=== PATIENT | female | born 1955 | race Caucasian/White ===

== ENCOUNTER 2020-12-11 13:34 | Outpatient (CLI) | payer BC, SELFPAY ==
--- NOTE | ~2020-12-11 | XR_ITS ---
XR chest 2V DATE: 12/11/2020 13:53 INDICATION: Shortness of breath TECHNIQUE: PA and lateral views COMPARISON: None FINDINGS: Normal heart size. Mild aortic tortuosity. No hilar or mediastinal enlargement. No pulmonary infiltrate or consolidation, pleural effusion or pulmonary vascular congestion or pneumo thorax. Diffuse osteopenia. Mild dextro scoliosis and degenerative spurring of the thoracic spine. Status post cholecystectomy IMPRESSION: No active cardiopulmonary disease Diffuse osteopenia. Reviewed, dictated and finalized at location A. 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
== END 2020-12-11 13:35 | disposition home or self-care (01) ==
PROVIDERS: PCP Family Medicine; Visit Provider Family Medicine
DX: R06.02 Shortness of breath (principal); M85.89 Other specified disorders of bone density and structure, multiple sites
CPT/HCPCS: 71046

== ENCOUNTER 2020-12-11 14:42 | Emergency (ER) | payer BC, SELFPAY ==
[2020-12-11 15:03] VITALS: BP 140/66; PULSE 72; RESP 16; TEMP 36.8; O2SAT 100
--- NOTE | 2020-12-11 15:22 | ED.SKABFB ---
HPI - Skin/Abscess/Foreign Bdy General Chief complaint: Skin/Abscess/Foreign Body Stated complaint: PNEUMONIA SHOT REACTION Source: patient and RN notes reviewed Limitations: no limitations History of Present Illness HPI narrative: The obese patient, on minimal meds, presents with skin eruption. Patient states at the beginning of the week she got a pneumonia vaccination in her left deltoid. She now complains of couple day history of oval, hand-size area of raised redness. Symptoms are mild, associated with pruritus. No fever, streaking, abscess/induration/fluctuance; her doctor did call in some antibiotics for ear pain ---which she has not taken [as her ear got better with some added eardrops] Related Data Home Medications Medication Instructions Recorded Confirmed cholecalciferol (vitamin D3) 3,000 unit PO DAILY 12/11/20 12/11/20 [Vitamin D3] irbesartan 150 mg PO DAILY 12/11/20 12/11/20 Allergies Allergy/AdvReac Type Severity Reaction Status Date / Time clarithromycin Allergy Unknown Unknown Verified 12/11/20 14:53 magnesium Allergy Unknown Unknown Verified 12/11/20 14:53 omeprazole Allergy Unknown Unknown Verified 12/11/20 14:53 Penicillins Allergy Unknown unknown Verified 12/11/20 14:53 Sulfa (Sulfonamide Allergy Unknown Unknown Verified 12/11/20 14:53 Antibiotics) 1.PCN, 2.SULFA Allergy Unknown unknown Uncoded 12/11/20 14:53 SHRIMP Allergy Unknown Unknown Uncoded 12/11/20 14:53 SULFACETAMIDE (Generic Allergy Unknown Uncoded 12/11/20 14:53 Allergy) Review of Systems Review of Systems: Narrative: General/Constitutional: No weight loss,fever Eyes: N0: Redness,discharge Ears/Nose/Throat: No: Epistaxis,ear discharge Respiratory: Denies: Hemoptysis Gastrointestinal: No Vomiting, Bleeding-rectal Skin: No Lumps, REPORTS eruption Neurologic: No Focal Weakness,Sz Hematologic: Denies: Petechiae/Purpura Psychiatric: No: Suicida ideationl All Other Systems: Reviewed and Negative [facility] Past Medical History Medical History (Updated 12/11/20 @ 15:25 by Venancio Hadley MD) Encounter for cholecystectomy Substernal chest pain Surgical History Surgical History History of carpal tunnel release (~2009) Family History Family History Father Family history of congenital heart disease Family history of cardiovascular disease, Onset Age: 89 Family history of congestive heart failure, Onset Age: 89 Mother Family history of cardiovascular disease Family history of malignant neoplasm of breast Family history of malignant neoplasm of breast in first degree relative Social History Social History Smoking status: Never smoker Alcohol intake: never Comments At time of signature, agree with nursing past medical, surgical, social and family history. There is no relevant family history pertinent to the presenting complaint Exam Narrative: Exam Narrative: General Appearance: Obese appearing, Conjunctiva clear Skin: Warm, Dry; 9 cm diameter, raised, pink-red, well-demarcated erysipeloid eruption centered on injection puncta at left deltoid Mouth/Throat: Normal appearing, Normal lips Neck: Supple Respiratory: Airway patent, No respiratory distress Musculoskeletal: Full ROM Neurological: A&O x3, CN II-X intact Psychiatric: Normal mood, Normal affect Course Vital Signs Vital signs: Vital Signs Temperature 98.3 F 12/11/20 15:03 Pulse Rate 72 12/11/20 15:03 Respiratory Rate 16 12/11/20 15:03 Blood Pressure 140/66 12/11/20 15:03 Pulse Oximetry 100 12/11/20 15:03 Temperature 98.3 F 12/11/20 15:03 Pulse Rate 72 12/11/20 15:03 Respiratory Rate 16 12/11/20 15:03 Blood Pressure 140/66 12/11/20 15:03 Pulse Oximetry 100 12/11/20 15:03 Discharge Plan Discharge Clinical Impression:
== END 2020-12-11 15:29 | disposition home or self-care (01) ==
PROVIDERS: Emergency Provider Emergency Medicine; PCP Family Medicine
DX: A46 Erysipelas (principal)
CPT/HCPCS: 99213; G0463

== ENCOUNTER 2021-01-04 15:06 | Outpatient (CLI) | payer BC, SELFPAY ==
--- NOTE | ~2021-01-04 | DEXA_ITS ---
Bone Density Report Name: Cady López Age: 65 Sex: Female Ethnicity: White Date of : 1955 Indication: postmenopausal; parental hip fracture; height loss; prior fracture; cancer; Referring Provider: Irving Adams Study: Bone densitometry was performed. Exam Date: January 04, 2021 Accession number: [id number] Bone Density: Region BMD T-score Z-score Classification AP Spine (L1-L4) 1.065 0.2 2.1 Normal Femoral Neck (Left) 0.682 -1.5 0.1 Osteopenia Total Hip (Left) 0.882 -0.5 0.9 Normal Total Hip Bilateral Avg 0.919 -0.2 1.2 Normal Femoral Neck (Right) 0.737 -1.0 0.6 Normal Total Hip (Right) 0.954 0.1 1.5 Normal World Health Organization criteria for BMD impression classify patients as: Normal (T-score at or above -1.0), Osteopenia (T-score between -1.0 and -2.5), or Osteoporosis (T-score at or below -2.5). 10-year Fracture Risk(1): Major Osteoporotic Fracture 23% Hip Fracture 2.3% Reported Risk Factors: [place] (), Neck BMD=0.682, BMI=41.5, previous fracture, parental fracture (1) FRAX(R) Version 3.08. Fracture probability calculated for an untreated patient. Fracture probability may be lower if the patient has received treatment. Previous Exams: Region Exam Age BMD T-score BMD Change BMD Change Date g/cm2 vs Baseline vs Previous AP Spine(L1-L4) 01/04/2021 65 1.065 0.2 0.036(3.5%)* 0.036(3.5%)* 10/05/2015 60 1.029 -0.2 Total Hip(Left) 01/04/2021 65 0.882 -0.5 -0.027(-3.0%)# -0.014(-1.6%) 10/05/2015 60 0.896 -0.4 -0.013(-1.5%)# -0.013(-1.5%)# 08/30/2010 55 0.909 -0.3 Total Hip(Right) 01/04/2021 65 0.954 0.1 0.055(6.2%)# -0.027(-2.7%) 10/05/2015 60 0.981 0.3 0.082(9.1%)# 0.082(9.1%)# 08/30/2010 55 0.899 -0.4 *Denotes significance at 95% confidence level, LSC for AP Spine = 0.022 g/cm2, LSC for Total Hip = 0.027 g/cm2 Clinical Information Provided by Patient: Has had a low trauma fracture Parent has had a hip fracture Has the following medical conditions: Cancer Patient maximum height was 64 Menopause Age: 53 Drinks caffeinated beverages Onset of menses at age 12 Number of children 3 Impression: The patient has low bone mass, based on the Left Femoral Neck T-score. The patient has an estimated ten-year risk of hip fracture of 2.3% and an estimated ten-year risk of major fracture of 23%, based on the WHO FRAX algorithm. The patient has risk factors, including:
--- NOTE | ~2021-01-04 | MM_ITS ---
EXAMINATION: MM screening [facility] BI w chema HISTORY: Screening mammogram TECHNIQUE: Craniocaudal and mediolateral oblique 3-D tomosynthesis images were obtained and synthetic 2-D images were generated. CAD analysis was submitted and interpreted. COMPARISON: 08/30/2017, 10/05/2015, 04/01/2013 bilateral digital screening mammogram examinations BREAST PARENCHYMAL COMPOSITION: There are scattered areas of fibroglandular density. FINDINGS: Scattered bilateral benign calcifications are noted. There is no evidence of suspicious mas s, calcification, or architectural distortion to suggest malignancy in either breast. There has been no suspicious interval change. IMPRESSION: 1. No mammographic evidence of malignancy. 2. Recommend routine screening mammography in one year. BI-RADS Category 2: Benign finding(s). Reviewed, dictated and finalized at location A. 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
== END 2021-01-04 15:07 | disposition home or self-care (01) ==
PROVIDERS: PCP Family Medicine; Visit Provider Family Medicine
DX: Z12.31 Encounter for screening mammogram for malignant neoplasm of breast (principal); Z78.0 Asymptomatic menopausal state; M85.852 Other specified disorders of bone density and structure, left thigh
CPT/HCPCS: 77063; 77067; 77080

== ENCOUNTER 2021-04-16 01:46 | Emergency (ER) | payer BC, SELFPAY ==
--- NOTE | ~2021-04-16 | XR_ITS ---
EXAMINATION: XR chest 2V DATE: 04/16/2021 02:29 INDICATION: Sternal chest pain TECHNIQUE: PA and lateral views of the chest are obtained. COMPARISON: 12/11/2020 FINDINGS: The lungs are free of acute opacities. There is no pleural effusion or pneumothorax. The ca rdiomediastinal silhouette is normal. There is moderate thoracic spondylosis. Surgical clips in the r ight upper quadrant are likely from prior cholecystectomy. IMPRESSION: 1. No acute cardiopulmonary abnormality. Reviewed, dictated and finalized at location A.
[2021-04-16 01:51] VITALS: BP 174/87; PULSE 61; RESP 17; O2SAT 99
[2021-04-16 01:57] VITALS: PULSE 62
--- NOTE | 2021-04-16 01:59 | ECG_ITS ---
Measurements Intervals [place] Rate: 58 P: 35 GA: 206 QRS: 1 QRSD: 105 T: 30 QT: 395 QTc: 391 Interpretive Statements SINUS BRADYCARDIA BORDERLINE AV CONDUCTION DELAY CONSIDER INFERIOR INFARCT, AGE INDETERMINATE BASELINE ARTIFACT- II, V3-V6 ABNORMAL ECG Electronically Signed On 04-16-2021 6:28:04 CDT by Emmanuel Hernandez D.O.
[2021-04-16 02:12] LABS: Basophils Absolute Auto 0.1 K/mm3 (0.0-0.1); Basophils Percent Auto 0.9 % (0.2-1.2); Eosinophils Absolute Auto 0.2 K/mm3 (0-0.3); Eosinophils Percent Auto 2.5 % (0-4.4); Hematocrit 44.2 % (37.0-47.0); Immature Granulocyte Absolute 0.03 K/mm3 (0.00-0.031); Immature Granulocyte Percent A 0.4 % (0-0.5); Lymphocytes Absolute Auto 2.82 K/mm3 (0.9-3.2); Lymphocytes Percent Auto 35.2 % (18.3-44.2); Mean Corpuscular HGB Conc 31.7 g/dl (32-36); Mean Corpuscular Hemoglobin 28.5 pg (26-34); Mean Corpuscular Volume 89.8 fl (80-100); Mean Platelet Volume 10.2 fl (7.4-10.4); Monocytes Absolute Auto 0.7 K/mm3 (0.1-0.6); Neutrophils Absolute Auto 4.2 K/mm3 (1.3-6.7); Platelet Count Result 288 k/mm3 (150-375); Red Blood Count 4.92 M/mm3 (4.2-5.4); Red Cell Distribution Width 13.4 % (11.5-14.5)
[2021-04-16 02:30] LABS: Prothrombin Time 13.5 Seconds (11.1-14.7)
[2021-04-16 02:31] LABS: Partial Thromboplastin Time 30.2 SECONDS (22.3-36.8)
[2021-04-16 02:34] LABS: Anion Gap 8 mmol/L (8-16); Blood Urea Nitrogen 20 mg/dL (7-17); Calcium 9.2 mg/dL (8.4-10.2); Carbon Dioxide 27 mmol/L (22-30); Chloride 106 mmol/L (98-107); Estimated CRCL calculation 71 ml/min; Estimated Glomerular Filt Rate > 60; Glucose 100 mg/dL (65-105); Potassium 4.1 mmol/L (3.4-5.0); Sodium 141 mmol/L (137-145)
[2021-04-16 02:46] LABS: Troponin I < 0.012 ng/mL (0.000-0.034)
--- NOTE | 2021-04-16 03:42 | ED.CHESTPAIN ---
HPI - Chest Pain General Chief Complaint: Chest Pain Stated Complaint: chest pain Time Seen by Provider: 04/16/21 01:54 History of Present Illness HPI narrative: Patient is a 65-year-old female who presents the ER with chest pain. Sudden onset while she was sleeping. Sharp and radiated to her right shoulder and right neck. It would worsen if she would lay down flat better if she is sitting upright. Associated with a left nasal nosebleed which is well controlled at this point. No previous history of coronary disease. Cannot report any aggravating factors but symptoms are resolved at this point. Related Data Home Medications Medication Instructions Recorded Confirmed cholecalciferol (vitamin D3) 3,000 unit PO DAILY 12/11/20 01/11/21 [Vitamin D3] Allergies Allergy/AdvReac Type Severity Reaction Status Date / Time clarithromycin Allergy Unknown Unknown Verified 01/11/21 16:10 magnesium Allergy Unknown Unknown Verified 01/11/21 16:10 Penicillins Allergy Unknown unknown Verified 01/11/21 16:10 Sulfa (Sulfonamide Allergy Unknown Unknown Verified 01/11/21 16:10 Antibiotics) Review of Systems Review of Systems: All systems reviewed & are unremarkable except as noted in HPI and below Constitutional: Constitutional: Denies chills, Denies fever(s) and Denies weakness ENT: Denies dysphagia, Reports epistaxis and Denies sore throat Cardiovascular: Cardiovascular: Reports chest pain, Denies rapid heart rate and Reports radiating jaw, neck or arm pain Respiratory: Respiratory: Denies cough, Denies dyspnea and Denies wheezing Gastrointestinal: Gastrointestinal: Denies abdominal pain, Denies nausea and Denies vomiting [facility] Past Medical History Medical History (Updated 04/16/21 @ 05:35 by Tyshawn Flores MD) Dyslipidemia Essential (primary) hypertension Substernal chest pain Surgical History Surgical History (Updated 04/16/21 @ 03:44 by Tyshawn Flores MD) History of carpal tunnel release (~2009) History of cholecystectomy Family History Family History (Reviewed 01/11/21 @ 16:10 by Opal Rainey [facility]) Father Family history of congenital heart disease Family history of cardiovascular disease, Onset Age: 89 Family history of congestive heart failure, Onset Age: 89 Mother Family history of cardiovascular disease Family history of malignant neoplasm of breast Family history of malignant neoplasm of breast in first degree relative Social History Social History (Reviewed 01/11/21 @ 16:10 by Opal Rainey [facility]) Alcohol intake: never Exam Narrative: Exam Narrative: GENERAL: Well-appearing, well-nourished, and in no acute distress. HEAD: Normocephalic, atraumatic.. ENT: Nares clear, no rhinorrhea or epistaxis, left naris with area of recent epistaxis over the septum. Mucous membranes moist. CHEST: Clear to auscultation. No respiratory distress. HEART: Regular rate and rhythm. Normal peripheral pulses. ABDOMEN: Soft, nontender, nondistended. EXTREMITIES: Normal range of motion. No edema. SKIN: Warm, dry, no rash. NEURO: Alert and oriented x3. PSYCH: Normal mood and affect. Course Course Emergency Course: Chest pain-free. Troponin negative x2. Discharge home. Patient may have had esophageal spasm or atypical reflux. Reevaluation(s) Reevaluation #1: Resting comfortably. No chest pain at this time. Discussed will perform second troponin. Date: 04/16/21 Time: 04:35 Vital Signs Vital signs: Vital Signs Pulse Rate 61 04/16/21 01:51 Respiratory Rate 17 04/16/21 01:51 Blood Pressure 174/87 H 04/16/21 01:51 Pulse Oximetry 99 04/16/21 01:51 Pulse Rate 62 04/16/21 01:57 Respiratory Rate 17 04/16/21 01:51 Blood Pressure 174/87 H 04/16/21 01:51 Pulse Oximetry 99 04/16/21 01:51 MDM - Chest Pain Lab Data Result diagrams: 04/16/21 02:05 04/16/21 02:05 Labs: Lab Results 04/16/21 04/16/21 04/16/21 Range/U
[2021-04-16 05:17] LABS: Troponin I < 0.012 ng/mL (0.000-0.034)
[2021-04-16 05:48] VITALS: BP 141/86; PULSE 61; RESP 18; TEMP 36.9; O2SAT 97
== END 2021-04-16 05:49 | disposition home or self-care (01) ==
PROVIDERS: Emergency Provider Emergency Medicine; PCP Family Medicine
DX: R07.9 Chest pain, unspecified (principal); R00.1 Bradycardia, unspecified; E78.5 Hyperlipidemia, unspecified; I10 Essential (primary) hypertension
CPT/HCPCS: 36415; 71046; 80048; 84484; 85025; 85610; 85730; 93005; 99284

== ENCOUNTER 2021-08-15 14:07 | Observation (INO) | payer MEDICARE, SELFPAY ==
[2021-08-15] VITALS (27 sets, daily range): BP systolic 129–157; BP diastolic 84–98; PULSE 59–83; RESP 13–24; TEMP 36.6–36.7; O2SAT 95–100; BMI 40.2
--- NOTE | ~2021-08-15 | XR_ITS ---
EXAMINATION: XR chest 2V DATE: 08/15/2021 15:23 INDICATION: Syncopal episode TECHNIQUE: PA and lateral views of the chest were obtained. COMPARISON: Chest radiograph dated 04/16/2021 FINDINGS: The lungs remain clear with no focal airspace opacities, pulmonary edema, pleural effusion or pneumot horax. The cardiomediastinal silhouette is normal. Moderate mid thoracic spondylosis. Cholecystectomy clips in the right upper quadrant. Mild lumbar dextrocurvature with mild to moderate spondylosis. IMPRESSION: 1. No acute cardiopulmonary disease. Reviewed, dictated and finalized at location A.
--- NOTE | ~2021-08-15 | CT_ITS ---
EXAMINATION: CT brain wo con DATE: 08/15/2021 14:17 INDICATION: Acute stroke. TECHNIQUE: Computed tomography (CT) of the head was performed without intravenous contrast. The mA wa s adjusted according to patient size. Iterative reconstruction technique was employed. The dose-lengt h product was 605.33 mGy-cm. COMPARISON: None FINDINGS: There is no intracranial hemorrhage, acute infarction, or abnormal intracranial mass lesion . The ventricles are normal in size. The orbits are normal. There is mild mucosal thickening in the p aranasal sinuses. The mastoid air cells are normal. IMPRESSION: 1. Normal brain. I called this result to Dr. Fuentes. Reviewed, dictated and finalized at location A.
--- NOTE | ~2021-08-15 | US_ITS ---
EXAMINATION: US carotid duplex BI DATE: 08/16/2021 10:46 INDICATION: Possible stroke. Syncope. TECHNIQUE: Grayscale, color Doppler, and pulsed Doppler images of the cervical carotid arteries were obtained. The degree of vessel stenosis is placed in one of the following categories: normal, <50%, 5 0-69%, >=70% but less than near-occlusion, near-occlusion, or total occlusion. Note that percent sten osis relative to normal distal artery lumen diameter is indirectly measured from velocity measurement s as described by Favio, et al. Radiology 2003; 229:340-346. Notes: Normal: Peak systolic velocity <125 centimeters/sec and no plaque <50%. Peak systolic velocity <125 ( EDV <40; ICA/CCA PSV ratio <2.0; used these factors only a tandem lesions or low cardiac output or co ntralateral disease) 50-69 %: PSV 125-230 (EDV 40-100; ratio 2-4) >= 70% but less than near occlusion: PSV greater than 230 (EDV > 100; ratio> 4.0) Near Occlusion: PSV that is variable; markedly narrowed lumen Occlusion: Absent flow on color/spectral Doppler and no lumen on thompson scale. COMPARISON: None. FINDINGS: RIGHT: The right common carotid artery (CCA) peak systolic velocity (PSV) is 71 cm/s. The right internal car otid artery (ICA) PSV is 203 cm/s. The right ICA end-diastolic velocity (EDV) is 67 cm/s. The right I CA/CCA PSV ratio is 2.8. The external carotid artery (ECA) PSV is 79 cm/s. There is antegrade flow in the right vertebral artery. LEFT: The left CCA PSV is 95 cm/s. The left ICA PSV is 124 cm/s. The left ICA EDV is 25 cm/s. The left ICA/ CCA PSV ratio is 1.3. The ECA PSV is 89 cm/s. There is antegrade flow in the left vertebral artery. IMPRESSION: 1. 50-69% stenosis in the right internal carotid artery by sonographic criteria. 2. Less than 50% stenosis in the left internal carotid artery by sonographic criteria. Reviewed, dictated and finalized at location B. IMPRESSION: 1. 50-69% stenosis in the right internal carotid artery by sonographic criteria . 2. Less than 50% stenosis in the left internal carotid artery by sonographic cr iteria.
--- NOTE | ~2021-08-15 | MR_ITS ---
EXAMINATION: MR brain/brain stem wo con DATE: 08/16/2021 14:31 INDICATION: Transient global amnesia. TECHNIQUE: Magnetic resonance imaging (MRI) of the brain and brainstem was performed without intraven ous contrast. Sequences included sagittal and axial T1-weighted FSE, axial diffusion-weighted FS EPI, axial T2*-weighted GRE, axial T2-weighted FLAIR Propeller, and axial T2-weighted Propeller. The aviva ent refused contrast. Apparent diffusion coefficient (ADC) maps were created. COMPARISON: Head CT 08/15/2021 FINDINGS: There is no intracranial hemorrhage, acute infarction, or abnormal intracranial mass lesion . The ventricles are normal in size. The paranasal sinuses are clear. The orbits are normal. The mast oid air cells are normal. IMPRESSION: 1. Normal brain. Reviewed, dictated and finalized at location A. IMPRESSION: 1. Normal brain.
[2021-08-15 14:41] LABS: Glucose Point of Care 100 mg/dl (65-105)
[2021-08-15 15:46] LABS: Basophils Absolute Auto 0.1 K/mm3 (0.0-0.1); Basophils Percent Auto 0.8 % (0.2-1.2); Eosinophils Absolute Auto 0.2 K/mm3 (0-0.3); Eosinophils Percent Auto 3.2 % (0-4.4); Hematocrit 44.6 % (37.0-47.0); Hemoglobin 14.4 g/dL (12.0-15.0); Immature Granulocyte Absolute 0.03 K/mm3 (0.00-0.031); Immature Granulocyte Percent A 0.4 % (0-0.5); Lymphocytes Absolute Auto 2.06 K/mm3 (0.9-3.2); Lymphocytes Percent Auto 27.6 % (18.3-44.2); Mean Corpuscular HGB Conc 32.3 g/dl (32-36); Mean Corpuscular Hemoglobin 29.2 pg (26-34); Mean Corpuscular Volume 90.5 fl (80-100); Mean Platelet Volume 10.9 fl (7.4-10.4); Monocytes Absolute Auto 0.5 K/mm3 (0.1-0.6); Monocytes Percent Auto 7.2 % (2.6-8.5); Neutrophils Absolute Auto 4.5 K/mm3 (1.3-6.7); Neutrophils Percent Auto 60.8 % (45.5-73.1); Platelet Count Result 276 k/mm3 (150-375); Red Blood Count 4.93 M/mm3 (4.2-5.4); Red Cell Distribution Width 12.9 % (11.5-14.5); White Blood Count 7.5 K/mm3 (4.5-10.0)
[2021-08-15 15:51] LABS: Add Urine Microscopic? NO; Appearance Urine Clear (Clear); Bilirubin Urine Negative (Negative); Blood Urine Negative (Negative); Color Urine Straw (Yellow); Glucose Urine UA Negative (Negative); Ketones Urine Negative (Negative); Leukocyte Esterase Ur Negative LEU/UL (Negative); Nitrate Urine Negative (Negative); Protein Urine Negative (Negative); Specific Grav Ur 1.009 (1.001-1.035); Urobilinogen Urine Negative mg/dL (<2.0)
[2021-08-15 16:00] LABS: Prothrombin Time 13.1 Seconds (11.1-14.7)
[2021-08-15 16:01] LABS: Partial Thromboplastin Time 29.2 SECONDS (22.3-36.8)
[2021-08-15 16:02] LABS: Alanine Aminotransferase 18 U/L (4-35); Albumin Level 4.5 g/dL (3.5-5.1); Alkaline Phosphatase 97 U/L (38-126); Anion Gap 3 mmol/L (8-16); Aspartate Amino Transferase 24 U/L (14-36); Bilirubin,Total 0.3 mg/dL (0.2-1.3); Blood Urea Nitrogen 18 mg/dL (7-17); Calcium 9.4 mg/dL (8.4-10.2); Carbon Dioxide 32 mmol/L (22-30); Chloride 105 mmol/L (98-107); Estimated CRCL calculation 76 ml/min; Estimated Glomerular Filt Rate > 60; Glucose 105 mg/dL (65-110); Sodium 140 mmol/L (137-145)
[2021-08-15 16:14] LABS: Troponin I < 0.012 ng/mL (0.000-0.034)
--- NOTE | 2021-08-15 16:38 | ED.GENADULT ---
HPI - General Adult General Chief complaint: Altered Mental Status Stated complaint: AMS Time Seen by Provider: 08/15/21 14:33 History of Present Illness HPI narrative: Patient is a 66-year-old female who presents ER with concerns for strokelike symptoms. Patient was at the [facility] and had finished doing planks and was working on some bird dogs when she lost her memory until paramedics showed up. Even at that time she is unsure whether there or what was going on. She continued to have difficulty responding to questions until her arrival at the ER. She is still amnestic to the events that occurred. She denies any numbness or tingling or focal weakness. Patient has been seen in the past for chest pain. She had an echocardiogram in 01/[address] changes and she was noted to have hypertensive response with a blood pressure going up into the 200s at that time. Recent consultation by cardiology revealed that they would like to perform a cardiac catheterization if patient is continue to have recurrent chest pain given these findings. Related Data Home Medications Medication Instructions Recorded Confirmed cholecalciferol (vitamin D3) 3,000 unit PO DAILY 12/11/20 08/15/21 [Vitamin D3] flaxseed oil 1,000 mg PO DAILY 08/15/21 08/15/21 Allergies Allergy/AdvReac Type Severity Reaction Status Date / Time clarithromycin Allergy Unknown Unknown Verified 08/15/21 18:27 magnesium Allergy Unknown Unknown Verified 08/15/21 18:27 Penicillins Allergy Unknown unknown Verified 08/15/21 18:27 Sulfa (Sulfonamide Allergy Unknown Unknown Verified 08/15/21 18:27 Antibiotics) Review of Systems Review of Systems: All systems reviewed & are unremarkable except as noted in HPI and below Constitutional: Constitutional: Denies chills, Denies fever(s) and Denies weakness ENT: Denies nasal congestion and Denies sore throat Cardiovascular: Cardiovascular: Denies chest pain, Denies rapid heart rate and Denies radiating jaw, neck or arm pain Respiratory: Respiratory: Denies cough and Denies dyspnea Gastrointestinal: Gastrointestinal: Denies abdominal pain, Denies nausea and Denies vomiting Musculoskeletal: Musculoskeletal: Denies back pain, Reports arthralgias (Bilateral knee pain related to quadriceps tendinitis.) and Denies muscle cramps Neurologic: Reports syncope (?), Denies focal weakness and Denies numbness Comments: Amnesia PMFSH Past Medical History Medical History Acute sinusitis Essential (primary) hypertension Mixed hyperlipidemia Obstructive sleep apnea Upper respiratory infection Surgical History Surgical History History of carpal tunnel release History of section History of cholecystectomy History of tubal ligation History of vocal cord polypectomy Family History Family History Father Family history of congenital heart disease Family history of cardiovascular disease, Onset Age: 89 Family history of congestive heart failure, Onset Age: 89 Mother Family history of cardiovascular disease Family history of malignant neoplasm of breast Family history of malignant neoplasm of breast in first degree relative Social History Social History Social History: Surrogate decision-maker: Guzman Meadowsrecht, . CODE STATUS: Full code. 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 Smoking status: Never smoker Second hand tobacco smoke exposure: Yes Alcohol intake: never Substance use: never Substance use type: does not use Additional living arrangements comments: Lives in [place] with her . They have 3 adult sons. Patient enjoys gardening. Additional occupation/education comments: Retired o
--- NOTE | 2021-08-15 17:00 | ECG_ITS ---
Measurements Intervals [place] Rate: 63 P: 0 ND: 204 QRS: 11 QRSD: 100 T: 24 QT: 389 QTc: 399 Interpretive Statements SINUS RHYTHM BORDERLINE AV CONDUCTION DELAY LEFT VENTRICULAR HYPERTROPHY BASELINE WANDER- I, II, III BORDERLINE ECG Electronically Signed On 08-15-2021 17:19:37 CDT by Emmanuel Hernandez D.O.
--- NOTE | 2021-08-15 18:30 | PM.IMHP ---
H&P: HPI History of Present Illness Date/Time: 08/15/21 18:30 Chief Complaint: Altered mental status. Narrative: This is a very pleasant 66-year-old female with hypertension, dyslipidemia, and untreated sleep apnea who presented to the emergency department earlier today via EMS from the [facility] for evaluation of altered mental status. The patient was at the gym earlier today doing planks on a mat when she suddenly became confused. According to her head athletic trainer, the patient was disoriented and kept repeating the same questions, for instance she did not know where she was or how she got there. The next thing I know there were paramedics all around to me, taking me to the hospital. Brain CT and labs done on arrival to the emergency department were relatively unrevealing and over the last several hours that she has been in the ER, she has started to remember the events that occurred today. She now remembers getting up in the morning, eating breakfast, working in her garden, going to the gym, and she remembers feeling disoriented almost as though I was dissociated from my body. She has no deficits at the time my evaluation and has no complaints. She denies headache, vertigo, focal weakness, paresthesias, facial droop, dysphagia, and dysarthria. No chest pain, pleuritic pain, or shortness of breath. No reports of syncope or head trauma. She has never had similar symptoms in the past. She has not been started on any new medication recently. No alcohol or substance abuse. Review of Systems Review of Systems: 12 systems were reviewed. No fever, chills, or sweats. No recent cold or flu symptoms. She sleeps well at night and denies orthopnea and PND. She has been told that she snores and in fact was diagnosed with mild sleep apnea however she has not been able to tolerate the CPAP. She denies hypersomnolence. No recent illnesses. No sick contacts. She denies rash. No nausea, vomiting, diarrhea, or dysuria. Except as documented, all other systems were reviewed and are negative. REPLACED BY [facility] Past Medical History Medical History (Updated 08/15/21 @ 20:03 by Sivan Ulloa PA-C) Essential (primary) hypertension Mixed hyperlipidemia Obstructive sleep apnea Surgical History Surgical History (Updated 08/15/21 @ 20:01 by Sivan Ulloa PA-C) History of carpal tunnel release History of section History of cholecystectomy History of tubal ligation History of vocal cord polypectomy Family History Family History Father Family history of congenital heart disease Family history of cardiovascular disease, Onset Age: 89 Family history of congestive heart failure, Onset Age: 89 Mother Family history of cardiovascular disease Family history of malignant neoplasm of breast Family history of malignant neoplasm of breast in first degree relative Social History Social History (Updated 08/15/21 @ 20:02 by Sivan Ulloa PA-C) Social History: Surrogate decision-maker: Guzman López, . CODE STATUS: Full code. Smoking status: Never smoker Alcohol intake: never Substance use: never Additional living arrangements comments: Lives in [place] with her . They have 3 adult sons. Patient enjoys gardening. 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 Meds Home Medications and Allergies Home Medications Medication Instructions Recorded Confirmed Type cholecalciferol (vitamin D3) 3,000 unit PO DAILY 12/11/20 06/08/21 History [Vitamin D3] irbesartan 150 mg tablet 150 mg PO DAILY #90 tablet 06/08/21 06/08/21 Rx ciprofloxacin 0.3 %-dexamethasone 4 drp RIGHT EAR Q12H #7.5 ml 07/08/21 07/08/21 Rx 0.1 % ear drops,suspension Allergies Allergy/AdvReac Type Severity Reaction Status Date / Time clarithromycin Allergy Unknown Unknown Verified 08/15/21 18:27 magnesium Allergy Unknown Unknown Katherine
--- NOTE | 2021-08-15 20:18 | PC.NURSE ---
This patient, Cady López, was admitted to 3 [facility] Surg Room 320-01. Patient/family oriented to hospital policies and general routines including ID bracelet, bed and alarms, visiting hours, pain management, procedures, bathroom and other care routines, personal items, smoking policy, room service/diet, and visiting hours. Information on how to activate the Rapid Response Team has been discussed. Patient/Family are encouraged to report perceived risks to care and to ask questions if they do not understand what they are told or what they should do.
[2021-08-15 20:25] LABS: Troponin I < 0.012 ng/mL (0.000-0.034)
[2021-08-15] MEDS: ASPIRIN 81 MG CHEWABLE TABLET 324 MG PO (22:57)
[2021-08-15 23:40] LABS: Troponin I < 0.012 ng/mL (0.000-0.034)
[2021-08-16] VITALS (11 sets, daily range): BP systolic 114–132; BP diastolic 59–77; PULSE 55–87; RESP 18–20; TEMP 36.4–37; O2SAT 96–100
[2021-08-16 07:07] LABS: Alanine Aminotransferase 17 U/L (4-35); Albumin Level 4.1 g/dL (3.5-5.1); Alkaline Phosphatase 78 U/L (38-126); Anion Gap 6 mmol/L (8-16); Aspartate Amino Transferase 22 U/L (14-36); Bilirubin,Total 0.6 mg/dL (0.2-1.3); Blood Urea Nitrogen 17 mg/dL (7-17); Calcium 9.1 mg/dL (8.4-10.2); Carbon Dioxide 27 mmol/L (22-30); Chloride 108 mmol/L (98-107); Cholesterol 211 mg/dL (0-200); Estimated CRCL calculation 76 ml/min; Estimated Glomerular Filt Rate > 60; Glucose 102 mg/dL (65-110); HDL Direct 56 mg/dL; Potassium 4.2 mmol/L (3.4-5.0); Sodium 141 mmol/L (137-145); Triglycerides 104 mg/dL (<150)
[2021-08-16 07:17] LABS: LDL Cholesterol Direct 112 mg/dL
[2021-08-16] MEDS: CHOLECALCIFEROL 1,000 UNITS TABLET 3000 UNITS PO (09:00)
[2021-08-16] MEDS: ASPIRIN 81 MG ENTERIC TABLET PO (09:01)
--- NOTE | 2021-08-16 10:06 | PM.CNCAR ---
Assessment and Plan Assessment and plan (1) TGA (transient global amnesia): Code(s): G45.4 - Transient global amnesia Status: Acute Assessment and Plan: Patient presents with history consistent with transient global amnesia. Rule out TIA. There was no syncope. Telemetry shows NSR, no arrhythmias. Echo and MRI are pending as is the Neurology consult. (Preliminary echo report from my bedside view shows normal LV function. Patient had extremely tiny PFO with only 1 bubble noted in left atrium during bubble study, so it is extremely unlikely the patient had a TIA based on any PFO. ) Add a bubble study to the echo. This does not appear to be a cardiac event. (2) Essential (primary) hypertension: Code(s): I10 - Essential (primary) hypertension Status: Acute Assessment and Plan: Elevated BP at the time of the incident, but now blood pressure is controlled. (3) History of chest pain: Code(s): Z87.898 - Personal history of other specified conditions Status: Acute Assessment and Plan: Patient had has 3 or 4 episodes of chest pain, the last 1 being in January. Stress echo was negative. Has been seen by Dr. Lopez in the office, and is supposed to follow-up. No further evaluation chest pain is indicated at this time. No need for cardiac catheterization. History of Present Illness History of Present Illness Consult date/time: 08/16/21 10:06 Requesting physician: Sivan Ulloa PA-C Reason For Visit: transient global amnesia/extertional syncope Narrative: Date of service 08/16/2021: Cady Rene this 66-year-old female whom we were asked to see at the request of IVAN Oden for advice and opinion regarding amnesia and possible syncope. She has been seen in the past by Dr. Lopez for chest pain and had a negative stress echo in January 2021. She has history of hypertension and untreated sleep apnea. Patient has been exercising regularly since January, and she was at the [facility] do her exercises with her sales trainer. EMS run report shows the sales trainer states that the patient all the sudden became confused and started repeating questions. She forgot where she was and how she got to the gym. She recalls that this occurred when she was doing planks. On their arrival, vitals were stable, she was slow to answer questions, confused and disoriented but still responded appropriately to questions about herself, date, time and location. Fasting blood sugar 98, blood pressure. 174/84, O2 sat 98%, heart rate 72. No slurred speech or decreased motor function but some numbness and tingling around her mouth. She is able stand and walk to the stretcher without assistance. However, on the right over, she still could not recall EMS arrival on the scene, doing her work out, speaking with her instructor, if she ate breakfast that day as cetera. There was no chest pain, shortness of breath, dizziness, syncope or palpitations. The patient has not had any chest pain since January. She does have history of migraines. There was no aura yesterday. Patient is asking if we are going to do a cardiac catheterization; apparently that had been discussed in the past if there were more cardiac events or chest pain. Review of Systems Constitutional: Constitutional: Reports no additional constitutional complaints and Denies lethargy Eyes: Eyes: Reports no additional eye complaints ENT: Reports Normal hearing present Cardiovascular: Cardiovascular: Denies chest pain, Reports pedal edema (Occasional mild edema), Denies lightheadedness and Denies palpitations Respiratory: Respiratory: Denies no additional respiratory complaints, Denies dyspnea, Denies dyspnea on exertion and Denies wheezing Gastrointestin
--- NOTE | 2021-08-16 11:44 | WPDNEURCNPN ---
Assessment and Plan Additional Plan transient global amnesia with the possibility of partial seizures obviously she going to undergo EEG MRI of the brain and carotid studies and further recommendation will be made accordingly Consult date: 08/16/21 Time Seen: 11:30 HPI: Cady López is a 66 year old female 66 years old lady has been admitted to the hospital through the emergency room for the complaints of change in the mental status with the ongoing diagnosis of 1. Hypertension 2. Sleep apnea 3. Dyslipidemia . She was brought to the ER via EMS from [facility] for the complaints of change in the mental status reportedly she was at the gym earlier during flanks on a mat when she suddenly became confused according to her head animal trainer she was disoriented and kept repeating the same questions and she did not know where she was and how she got there she herself mentions that next thing she knew that she was seeing paramedics all around her she was brought to the hospital in the emergency room her initial CT scan of the head was unremarkable but she had started to remember the events that occurred the day and by the time she was admitted to the hospital he was able to remember getting up in the morning eating breakfast working in her garden going to the gym and feeling somewhat disoriented she had no disorientation at the time of examination by the hospitalist she gave no history of headache vertigo focal weakness facial droop dysphagia or dysarthria she does not drink she does not take any medications. As mentioned before she has never smoker never alcohol drinker and medications included only antihypertensive medication also she was noted Michele afebrile Review of Systems Review of Systems: All systems reviewed & are unremarkable except as noted in HPI and below PMFSH Past Medical History Medical History Acute sinusitis Essential (primary) hypertension Mixed hyperlipidemia Obstructive sleep apnea Upper respiratory infection Surgical History Surgical History History of carpal tunnel release History of section History of cholecystectomy History of tubal ligation History of vocal cord polypectomy Family History Family History Father Family history of congenital heart disease Family history of cardiovascular disease, Onset Age: 89 Family history of congestive heart failure, Onset Age: 89 Mother Family history of cardiovascular disease Family history of malignant neoplasm of breast Family history of malignant neoplasm of breast in first degree relative Social History Social History Social History: Surrogate decision-maker: Guzman López, . CODE STATUS: Full code. 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 Smoking status: Never smoker Second hand tobacco smoke exposure: Yes Alcohol intake: never Substance use: never Substance use type: does not use Additional living arrangements comments: Lives in [place] with her . They have 3 adult sons. Patient enjoys gardening. 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 Spiritual care concerns: No Meds Home Medications and Allergies Home Medications Medication Instructions Recorded Confirmed Type cholecalciferol (vitamin D3) 3,000 unit PO DAILY 12/11/20 08/15/21 History [Vitamin D3] irbesartan 150 mg tablet 150 mg PO DAILY #90 tablet 06/08/21 08/16/21 Rx flaxseed oil 1,000 mg PO DAILY 08/15/21 08/15/21 History Allergies Allergy/AdvReac Type Severity Reaction Status Date / Time clarithromycin Allergy Unknown Unknown Verified 08/15/21 18:27 magnesium Allergy Unknown Unknown Verified 08/15/21 18:27 Penicillins Allergy Unknow
--- NOTE | 2021-08-16 15:17 | PC.NURSE ---
On 08/16/21, the student, [Verna Gaffney ], provided care and completed [facility] documentation on this patient. I have reviewed the student's documentation and agree with the findings.
--- NOTE | 2021-08-16 18:46 | PM.IMPN ---
Progress Note: A&P Assessment and Plan (1) Transient global amnesia: Code(s): G45.4 - Transient global amnesia Status: Acute (2) Essential (primary) hypertension: Code(s): I10 - Essential (primary) hypertension Status: Acute (3) Dyslipidemia: Code(s): E78.5 - Hyperlipidemia, unspecified Status: Acute (4) Mixed hyperlipidemia: Code(s): E78.2 - Mixed hyperlipidemia Status: Acute Additional Plan 08/15/21 Patient was in her usual state of health when she got up this morning and while exercising she became suddenly confused and disoriented. History is suggestive of transient global amnesia. She does have risk factors for TIA/CVA though she is being admitted overnight for closer monitoring. Neurologic checks every 4 hours. Echocardiogram, carotid Doppler ultrasounds, and brain MRI ordered for a.m. Blood per his were reviewed and they are reasonably well-controlled, bit high on arrival though they have improved. Her home medications will be reviewed and resumed as appropriate. 08/16/21 MRI is negative for CVA Carotid ultrasound negative for high-grade stenosis EEG is pending Anticipate discharge home after neurological clearance tomorrow Subjective Date/time seen: 08/16/21 18:46 Patient seen sitting at side of bed speaking on Telfa without complaint. We reviewed possible diagnosis and that we are pending EEG for discharge. Patient questions pathophysiology of global transient amnesia. She is advised that she does not get the information she is seeking from Neurology tomorrow that I will review it with her. Exam Narrative: GEN: NAD, AAOx3, cooperative HEENT: NCAT, MMM, EOMI Neck: no JVD Heart: S1S2 RRR Lungs: CTA B/l Abd: soft, NT, ND, bowel sounds normoactive Ext: moves all, no cyanosis, no clubbing, no edema Neuro: Normal cognition, moves all extremities equally, no focal sensory or motor deficits appreciated Psych: Mood and affect congruent Objective Data Vital Signs Vital Signs: Vital Signs - 24 hr 08/15/21 20:00 08/15/21 20:15 08/16/21 00:00 Temperature 98.1 F Pulse Rate 74 71 65 Respiratory Rate 18 Blood Pressure 139/84 Pulse Oximetry 96 08/16/21 04:00 08/16/21 06:00 08/16/21 08:00 Temperature 97.6 F Pulse Rate 55 L 60 59 L Respiratory Rate 18 Blood Pressure 114/73 Pulse Oximetry 100 08/16/21 10:00 08/16/21 12:00 08/16/21 14:00 Temperature 98.6 F 98.0 F Pulse Rate 68 58 L 64 Respiratory Rate 20 18 Blood Pressure 125/59 L 132/69 Pulse Oximetry 98 98 08/16/21 14:51 Temperature Pulse Rate Respiratory Rate Blood Pressure Pulse Oximetry 96 Intake/Output Intake/Output: Intake & Output 08/13/21 08/14/21 08/15/21 08/16/21 23:59 23:59 23:59 23:59 Intake Total 840 Balance 840 Meds/Results Medications: Active Medications Generic Name Dose Route Start Last Admin Trade Name Freq PRN Reason Stop Dose Admin Acetaminophen 650 mg 08/15/21 17:01 Acetaminophen 325 Mg Tablet PO Q4H PRN Mild Pain (1-3) or Fever Aspirin 81 mg 08/17/21 08:00 Aspirin 81 Mg Chewable Tablet PO DAILY@0800 [facility] Atorvastatin Calcium 20 mg 08/17/21 09:00 Atorvastatin 20 Mg Tablet PO DAILY [facility] Irbesartan 150 mg 08/16/21 09:00 08/16/21 10:14 Irbesartan 150 Mg Tablet PO Not Given DAILY [facility] Non-Formulary Medication 1,000 mg 08/16/21 09:00 Flaxseed Oil PO 09/15/21 08:59 DAILY [facility] Ondansetron HCl 4 mg 08/15/21 17:01 Ondansetron Inj 4 Mg/2 Ml Vial IV PUSH Q4H PRN Nausea Vitamin D 3,000 units 08/16/21 09:00 08/16/21 09:00 Cholecalciferol 1,000 Units Tablet PO 3,000 units DAILY [facility] Administration Radiology Results: ITS Impressions Head CT 08/15/21 14:18 IMPRESSION: 1. Normal brain. I called this result to Dr. Fuentes. Chest X-Ray 08/15/21 15:25 IMPRESSION: 1. No acute cardiopulmonary disease. Carotid Doppler Study
--- NOTE | 2021-08-16 20:05 | ECHO_ITS ---
Patient Info Name: Cady López Age: 66 years : 1955 Gender: Female Ht: 63 in Wt: 227 lbs BSA: 2.19 m2 HR: 66 bpm BP: 114 / 73 mmHg Exam Date: 08/16/2021 10:17 AM Exam Location: [facility] Pulmonary Patient Status: Inpatient Admit Date: 08/15/2021 Staff Ordering Physician: Sivan Ulloa PA-C Medical Billing Coordinator: Jak Gaffney RDCS, RT Attending Provider: Caridad Gupta MD Referring Physician: Laila CANNON; Exam Type: CA echo doppler w bubble study Study Info Indications G45.8 - Other transient cerebral ischemic attacks and related syndromes I10 - Essential (primary) hypertension Complete two-dimensional, color flow and Doppler transthoracic echocardiogram is performed with agitated saline. Strain analysis performed. Summary 1. Normal LV size, mild LVH, normal LV systolic function, ejection fraction 60-65%; grade 1 diastolic dysfunction. Mild left atrial enlargement. Normal interatrial septum, no evidence of shunt on injection of agitated normal saline. Normal mitral valve structure, no significant MR. Aortic valve sclerosis, mild aortic stenosis, v max 1.85 m/sec, mean gradient 6 mmHg; calculated SUE 1.9 cm2. Trace TR, mild pulmonary hypertension, RVSP 41 mmHg. Sinus rhythm. Left Ventricle Left ventricular chamber dimension is normal. Left ventricular systolic function is normal, estimated at 60-65%. There is mildly increased left ventricular wall thickness. The left ventricular diastolic function is grade I diastolic dysfunction. Left Atria Left atrial chamber dimension is mildly enlarged. Right Atria Right atrial chamber dimension is normal. Atrial Septum Intact interatrial septum visualized by agitated saline imaging. Aortic Valve There is mild aortic valve sclerosis. There is mild aortic valve stenosis with a peak velocity of 185 cm/s, mean gradient of 6 mmHg, and aortic valve area of 1.9 cm2. Pulmonic Valve The pulmonic valve is not well visualized. Mitral Valve The mitral valve has normal leaflets. There is no mitral valve regurgitation. Tricuspid Valve The tricuspid valve leaflets are normal. There is trace tricuspid valve regurgitation. Mild pulmonary hypertension, estimated pulmonary arterial systolic pressure is 41 mmHg. Pericardium/Pleural The pericardium appears normal. Inferior Vena Cava Dilated inferior vena cava with >50% collapse upon inspiration consistent with elevated right atrial pressure, 10 mmHg. Aorta The aortic root size at the sinus of Valsalva is normal. Left Ventricular Outflow Tract Name Value Normal LVOT 2D LVOT Diameter 1.9 cm LVOT Doppler LVOT Peak Gradient 4 mmHg LVOT Mean Gradient 2 mmHg LVOT VTI 21 cm LVOT VTI/AV VTI Ratio 0.7 LVOT Stroke Volume 59 ml LVOT CO 4.0 l/min LVOT CI 1.8 l/min/m2 Mitral Valve Name Value No
[2021-08-17] VITALS: PULSE 65
[2021-08-17 04:00] VITALS: PULSE 65
[2021-08-17 06:00] VITALS: BP 112/71; PULSE 61; RESP 18; TEMP 35.7; O2SAT 99
[2021-08-17 08:00] VITALS: PULSE 66
[2021-08-17] MEDS: CHOLECALCIFEROL 1,000 UNITS TABLET 3000 UNITS PO (08:56)
[2021-08-17] MEDS: ASPIRIN 81 MG CHEWABLE TABLET PO (08:56)
[2021-08-17] MEDS: IRBESARTAN 150 MG TABLET PO (08:56)
[2021-08-17] MEDS: ATORVASTATIN 20 MG TABLET PO (08:56)
--- NOTE | 2021-08-17 09:20 | WPDNEUROLOGY ---
Neurology EEG Report General Information Date of Study: 08/16/21 TEST eeg DIAGNOSIS Transient global amnesia CONDITION OF RECORDING drowsy and sleep EEG NUMBER [id number] CLINICAL HISTORY patient was at the gym yesterday when she became disoriented and confused. Today feels much better but still having problems with memory and slower word selection EEG DESCRIPTION basic resting occipital frequency consists of large amount of well-organized low to medium voltage 9 to 11 hertz per 2nd alpha admixed with low-voltage 15 to 18 hertz per 2nd beta. During drowsiness low-voltage beta activity seen diffusely admixed with waxing and waning posterior alpha rhythm. Bilateral symmetrical sleep activity seen during sleep hyperventilation not done. Photic stimulation not done. Non paroxysmal. Nonfocal. Nonlateralizing. IMPRESSION Normal recall
--- NOTE | 2021-08-17 11:45 | WPDNEUROPN ---
Progress Note: A&P Additional Plan considering the evaluation up until now she will be of benefit from the continuation of the aspirin and follow-up for the carotid stenosis with CTA either during this hospitalization or subsequently and with the as empty of diagnosis of TIA because she still complains of symptoms could not be suggestive of transient global amnesia Subjective Date/time seen: 08/17/21 11:45 66 years old initially seen for the possibility of transient global amnesia versus the possibility of partial complex seizures documented to have normal MRI of the brain and 50 to 69% stenosis in the right internal carotid artery by sonographic criteria and less than 50% of the left ICA, routine lab studies are normal, EEG was also normal and echocardiogram documented no shunt across the atrium with ejection fraction of 60 to 65% and mild aortic valve stenosis Review of Systems Review of Systems: All systems reviewed & are unremarkable except as noted in HPI and below Exam Narrative: exam reveals her to be awake alert cooperative in no obvious acute distress with normal and full speech without evidence of dysphagia or dysarthria or dysphonia pupils round regular feels the vision full extraocular movement full face symmetrical tongue midline motor examination revealed her to have normal strength and tone with symmetrical reflexes downgoing plantar responses and also no evidence of cerebellar deficit Objective Data Vital Signs Vital Signs: Vital Signs - 24 hr 08/16/21 12:00 08/16/21 14:00 08/16/21 14:51 Temperature 36.7 C Pulse Rate 58 L 64 Respiratory Rate 18 Blood Pressure 132/69 Pulse Oximetry 98 96 08/16/21 16:00 08/16/21 20:00 08/16/21 22:00 Temperature 36.7 C Pulse Rate 87 69 65 Respiratory Rate 18 Blood Pressure 131/77 Pulse Oximetry 97 08/17/21 00:00 08/17/21 04:00 08/17/21 06:00 Temperature 35.7 C L Pulse Rate 65 65 61 Respiratory Rate 18 Blood Pressure 112/71 Pulse Oximetry 99 Intake/Output Intake/Output: Intake & Output 08/14/21 08/15/21 08/16/21 08/17/21 23:59 23:59 23:59 23:59 Intake Total 1510 540 Balance 1510 540 Meds/Results Medications: Active Medications Generic Name Dose Route Start Last Admin Trade Name Freq PRN Reason Stop Dose Admin Acetaminophen 650 mg 08/15/21 17:01 Acetaminophen 325 Mg Tablet PO Q4H PRN Mild Pain (1-3) or Fever Aspirin 81 mg 08/17/21 08:00 08/17/21 08:56 Aspirin 81 Mg Chewable Tablet PO 81 mg DAILY@0800 [facility] Administration Atorvastatin Calcium 20 mg 08/17/21 09:00 08/17/21 08:56 Atorvastatin 20 Mg Tablet PO 20 mg DAILY [facility] Administration Irbesartan 150 mg 08/16/21 09:00 08/17/21 08:56 Irbesartan 150 Mg Tablet PO 150 mg DAILY [facility] Administration Non-Formulary Medication 1,000 mg 08/16/21 09:00 Flaxseed Oil PO 09/15/21 08:59 DAILY [facility] Ondansetron HCl 4 mg 08/15/21 17:01 Ondansetron Inj 4 Mg/2 Ml Vial IV PUSH Q4H PRN Nausea Vitamin D 3,000 units 08/16/21 09:00 08/17/21 08:56 Cholecalciferol 1,000 Units Tablet PO 3,000 units DAILY [facility] Administration Radiology Results: ITS Impressions Head CT 08/15/21 14:18 IMPRESSION: 1. Normal brain. I called this result to Dr. Fuentes. Chest X-Ray 08/15/21 15:25 IMPRESSION: 1. No acute cardiopulmonary disease. Carotid Doppler Study 08/16/21 10:49 IMPRESSION: 1. 50-69% stenosis in the right internal carotid artery by sonographic criteria. 2. Less than 50% stenosis in the left internal carotid artery by sonographic criteria. Brain MRI 08/16/21 14:40 IMPRESSION: 1. Normal brain. Quality VTE Prophylaxis VTE prophylaxis: mechanical ordered Amg Follow-up Billing Inpatient Follow-up [id number] Mod
--- NOTE | 2021-08-17 12:17 | PM.DS ---
DS: Admitting Diagnosis Discharge Date 08/17/21 Admitting Diagnosis (1) Transient global amnesia: Code(s): G45.4 - Transient global amnesia Status: Acute (2) Essential (primary) hypertension: Code(s): I10 - Essential (primary) hypertension Status: Acute (3) Mixed hyperlipidemia: Code(s): E78.2 - Mixed hyperlipidemia Status: Acute DS: Discharge Diagnosis Discharge Diagnosis (1) Transient global amnesia: Code(s): G45.4 - Transient global amnesia Status: Acute (2) Mixed hyperlipidemia: Code(s): E78.2 - Mixed hyperlipidemia Status: Acute (3) Essential (primary) hypertension: Code(s): I10 - Essential (primary) hypertension Status: Acute (4) Morbid obesity with BMI of 40.0-44.9, adult: Code(s): E66.01 - Morbid (severe) obesity due to excess calories; Z68.41 - Body mass index [BMI] 40.0-44.9, adult Status: Acute DS: Summary Hospital Course Reason for hospitalization: Altered mental status Hospital Course: 66-year-old female was brought into the hospital with acute onset of altered mental status. Differential diagnosis includes TIA, CVA, transient global amnesia. Neurology was consulted, and patient underwent CT brain, MRI, EEG, carotid ultrasound imaging. No CVA was identified on MRI an EEG did not show any seizure activity. Patient was discharged home in stable condition with diagnosis of global transient amnesia in stable condition with indications of follow-up with her primary care physician. Patient is prescribed both aspirin and statin therapy at discharge as per Neurology request, however, patient is concerned about taking this and the need for these medications as she was recently told by her PCP it was not indicated. She is advised that she is now being prescribed this for this new diagnosis and that she is encouraged to take it, but we respect her right discuss it 1st with her primary care physician. Status at Discharge Functional status at discharge: independent ambulation Overall status at discharge: patient is back to baseline Time Spent with Patient Time attestation: Total time spent providing and/or coordinating discharge services: Time spent: Greater than 30 minutes Exam Narrative: GEN: NAD, AAOx3, cooperative HEENT: NCAT, MMM, EOMI Neck: no JVD Ext: moves all, no cyanosis, no clubbing, no edema Neuro: Normal cognition, moves all extremities equally, no focal sensory or motor deficits appreciated Psych: Mood and affect congruent Discharge Plan Discharge Attending physician on discharge: Gisela Lawson Consulting providers: Thong Lombardo Discharging Clinician: Gisela Lawson Anticipated Discharge Date/Time: 08/17/21 12:11 Patient Disposition: Home, Self-Care Activity: as tolerated Diet: heart healthy Stand Alone Forms: General Discharge Information, Work/School Release IP Follow-up/Referrals: Irving Adams MD [Primary Care Provider] - Thong Lombardo MD [Physician] - Discharge Medications: New aspirin [Children's Aspirin] 81 mg Tablet,Chewable 81 mg PO DAILY@0800 30 Days Qty: 30 RF: 0 atorvastatin 20 mg Tablet 20 mg PO DAILY 30 Days Qty: 30 RF: 0 Continued cholecalciferol (vitamin D3) [Vitamin D3] 50 mcg (2,000 unit) Tablet 3,000 unit PO DAILY RF: 0 irbesartan 150 mg tablet 150 mg PO DAILY Qty: 90 RF: 3 flaxseed oil 1,000 mg Capsule 1,000 mg PO DAILY RF: 0 Date of admission: 08/15/21 17:01 Primary Care Provider: Irving Adams Admitting Provider: Caridad Gupta Attending physician on admission: Caridad Gupta Condition: Stable Quality VTE Prophylaxis VTE prophylaxis: mechanical ordered
== END 2021-08-17 13:55 | disposition home or self-care (01) ==
LOC: ANHED 17:04 → ANH3MEDSUR 08-16 16:03
PROVIDERS: Physician Assistant; Admitting Provider Internal Medicine; Emergency Provider Emergency Medicine; PCP Family Medicine; Visit Provider Hospitalist
DX: I65.21 Occlusion and stenosis of right carotid artery (principal); I10 Essential (primary) hypertension; E78.5 Hyperlipidemia, unspecified; G47.33 Obstructive sleep apnea (adult) (pediatric); E66.01 Morbid (severe) obesity due to excess calories; R41.82 Altered mental status, unspecified; Z68.41 Body mass index [BMI] 40.0-44.9, adult; Z79.899 Other long term (current) drug therapy
CPT/HCPCS: 36415; 70450; 70551; 71046; 80053; 80061; 81003; 82607; 82948; 83735; 84443; 84484; 85025; 85610; 85730; 93005; 93306; 93880; 95816; 96375; 99285; A9270; G0378

== ENCOUNTER 2022-02-08 00:06 | Day surgery (SDC) | payer MEDICARE, SELFPAY ==
[2021-12-07 13:33] VITALS: BMI 37.0
[2022-01-26 15:05] VITALS: BMI 38.1
--- NOTE | 2022-02-07 09:52 | WPDANESEPPF ---
Anes - Initial Pre Proc Eval Procedure: Operation Date: 02/08/22 08:00 Proposed Procedures p Screening Colonoscopy - Ziyad Mullins MD Date/Time: 02/07/22 09:52 Surgeon: Ziyad Mullins MD Pre Op Diagnosis: neoplasm screening Patient Data Age: 66 Gender: F Height: 1.63 m Weight: 100.8 kg Allergies Allergy/AdvReac Type Severity Reaction Status Date / Time Penicillins Allergy Unknown unknown Verified 02/08/22 06:47 Sulfa (Sulfonamide Allergy Unknown Unknown Verified 02/08/22 06:47 Antibiotics) Home Medications Medication Instructions Recorded Confirmed Type cholecalciferol (vitamin D3) 3,000 unit PO DAILY 12/11/20 01/26/22 History [Vitamin D3] flaxseed oil 1,000 mg PO DAILY 08/15/21 01/26/22 History aspirin [Children's Aspirin] 81 mg PO DAILY@0800 30 Days #30 08/17/21 01/26/22 Rx tablet atorvastatin 20 mg PO DAILY 30 Days #30 tablet 08/17/21 01/26/22 Rx irbesartan 150 mg tablet See Rx Instructions .ROUTE 12/19/21 01/26/22 Rx .COMPLEX #90 tablet Patient hx anesthesia problems: none Family hx anesthesia problems: none Results Review: All pre-operative results and documents have been reviewed as part of the pre-operative evaluation. [facility] Past Medical History Medical History Acute sinusitis Essential (primary) hypertension Mixed hyperlipidemia Obstructive sleep apnea Upper respiratory infection Surgical History Surgical History History of carpal tunnel release History of section History of cholecystectomy History of tubal ligation History of vocal cord polypectomy Family History Family History Father Family history of congenital heart disease Family history of cardiovascular disease, Onset Age: 89 Family history of congestive heart failure, Onset Age: 89 Mother Family history of cardiovascular disease Family history of malignant neoplasm of breast Family history of malignant neoplasm of breast in first degree relative Social History Social History Social History: Surrogate decision-maker: Guzman López, . CODE STATUS: Full code. 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 Smoking status: Never smoker Second hand tobacco smoke exposure: Yes Alcohol intake: never Substance use: never Substance use type: does not use Living arrangements: with family Additional living arrangements comments: Lives in [place] with her . They have 3 adult sons. Patient enjoys gardening. 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 Spiritual care concerns: No Anes - Eval Final PreProcedure Day of Procedure 02/07/22 09:52 Patient weight: obese Heart: regular rate and rhythm Lungs: clear to auscultation and normal air movement Airway: Mallampati scale class II Neurological: alert and oriented Last oral intake: >/= 8 hours ASA classification: III Emergent: no Anesthetic plan: proceed Anesthesia type and monitoring: general GIVS and standard monitoring Results Review: All pre-operative results and documents have been reviewed as part of the pre-operative evaluation. Informed Consent: The patient's anesthetic plan and its attendant risks and benefits were discussed with the patient/family/POA. Questions were solicited and answers provided to the satisfaction of the patient/family/POA.
[2022-02-08 06:48] VITALS: BP 133/75; PULSE 65; RESP 18; TEMP 36.5; O2SAT 100
[2022-02-08] MEDS: LACTATED RINGERS 1,000 ML 150 ML IV CONT (07:02)
--- NOTE | 2022-02-08 07:09 | PM.HPGS ---
History of Present Illness History of Present Illness Consent: Risks, benefits, and alternatives have been discussed and questions answered. Patient agrees to proceed with procedure. Chief complaint: neoplasm screening Narrative: Cady López is a 66 year old female Referred for colon cancer screening. This is her 1st colonoscopy. She is not aware of any family history of colon cancer. Review of Systems Review of Systems: All systems reviewed & are unremarkable except as noted in HPI and below PMFSH Past Medical History Medical History Acute sinusitis Essential (primary) hypertension Mixed hyperlipidemia Obstructive sleep apnea Upper respiratory infection Surgical History Surgical History History of carpal tunnel release History of section History of cholecystectomy History of tubal ligation History of vocal cord polypectomy Family History Family History Father Family history of congenital heart disease Family history of cardiovascular disease, Onset Age: 89 Family history of congestive heart failure, Onset Age: 89 Mother Family history of cardiovascular disease Family history of malignant neoplasm of breast Family history of malignant neoplasm of breast in first degree relative Social History Social History Social History: Surrogate decision-maker: Guzman López, . CODE STATUS: Full code. 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 Smoking status: Never smoker Second hand tobacco smoke exposure: Yes Alcohol intake: never Substance use: never Substance use type: does not use Living arrangements: with family Additional living arrangements comments: Lives in [place] with her . They have 3 adult sons. Patient enjoys gardening. 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 Spiritual care concerns: No Meds Home Medications and Allergies Home Medications Medication Instructions Recorded Confirmed Type cholecalciferol (vitamin D3) 3,000 unit PO DAILY 12/11/20 01/26/22 History [Vitamin D3] flaxseed oil 1,000 mg PO DAILY 08/15/21 01/26/22 History aspirin [Children's Aspirin] 81 mg PO DAILY@0800 30 Days #30 10/20/21 03/31/22 Rx tablet atorvastatin 20 mg PO DAILY 30 Days #30 tablet 08/17/21 01/26/22 Rx irbesartan 150 mg tablet See Rx Instructions .ROUTE 12/19/21 01/26/22 Rx .COMPLEX #90 tablet Allergies Allergy/AdvReac Type Severity Reaction Status Date / Time Penicillins Allergy Unknown unknown Verified 02/08/22 06:47 Sulfa (Sulfonamide Allergy Unknown Unknown Verified 02/08/22 06:47 Antibiotics) Vital Signs Vital Signs - 24 hr 02/08/22 06:48 Temperature 36.5 C Pulse Rate 65 Respiratory Rate 18 Blood Pressure 133/75 Pulse Oximetry 100 Exam Resp: Auscultation: clear to auscultation bilaterally Cardio: Rate: regular rate Rhythm: regular rhythm GI: GI Palp: Yes Soft to palpation and No Tenderness to palpation present (GI) Assessment and Plan Assessment and plan (1) Colon cancer screening: Code(s): Z12.11 - Encounter for screening for malignant neoplasm of colon Status: Acute Assessment and Plan: Colonoscopy with possible biopsy or polypectomy or cautery or injection of substances.
[2022-02-08 08:06] VITALS: BP 108/67; PULSE 63; RESP 19; O2SAT 97
[2022-02-08 08:16] VITALS: BP 105/62; PULSE 62; RESP 22; O2SAT 98
[2022-02-08 08:26] VITALS: BP 121/80; PULSE 58; RESP 22; O2SAT 99
== END 2022-02-08 08:35 | disposition home or self-care (01) ==
PROVIDERS: PCP Family Medicine; Visit Provider Internal Medicine Gastroenterology
PROC: 0DJD8ZZ Inspection of Lower Intestinal Tract, Via Natural or Artificial Opening Endoscopic (ICD-10-PCS; CPT 45378; principal; 2022-02-08 08:00)
DX: Z12.11 Encounter for screening for malignant neoplasm of colon (principal); K57.30 Diverticulosis of large intestine without perforation or abscess without bleeding; I10 Essential (primary) hypertension; E78.2 Mixed hyperlipidemia; G47.33 Obstructive sleep apnea (adult) (pediatric); Z79.82 Long term (current) use of aspirin; E66.9 Obesity, unspecified; Z68.39 Body mass index [BMI] 39.0-39.9, adult
CPT/HCPCS: G0121; J2704; J7120

== ENCOUNTER 2022-08-01 08:01 | Outpatient (CLI) | payer MEDICARE, SELFPAY ==
[2022-08-01 18:47] LABS: Alanine Aminotransferase 20 U/L (6-35); Alkaline Phosphatase 86 U/L (38-126); Anion Gap 10 mmol/L (8-16); Aspartate Amino Transferase 42 U/L (14-36); Bilirubin,Total 0.5 mg/dL (0.2-1.3); Blood Urea Nitrogen 16 mg/dL (7-17); Calcium 8.7 mg/dL (8.4-10.2); Carbon Dioxide 28 mmol/L (22-30); Chloride 103 mmol/L (98-107); Cholesterol 196 mg/dL (0-200); Estimated Glomerular Filt Rate > 60; Glucose 94 mg/dL (65-110); HDL Direct 46 mg/dL; Potassium 4.3 mmol/L (3.4-5.0); Sodium 141 mmol/L (137-145); Triglycerides 111 mg/dL (<150)
[2022-08-01 18:48] LABS: LDL Cholesterol Direct 104 mg/dL
[2022-08-01 19:37] LABS: Hemoglobin A1C 5.8 % (<5.7)
== END 2022-08-01 08:02 | disposition home or self-care (01) ==
LOC: ANHGOSHLAB 08:03
PROVIDERS: PCP Family Medicine; Visit Provider Family Medicine
DX: E78.2 Mixed hyperlipidemia (principal); I10 Essential (primary) hypertension; R73.03 Prediabetes
CPT/HCPCS: 36415; 80053; 80061; 83036

== ENCOUNTER 2022-10-06 09:20 | Outpatient (CLI) | payer MEDICARE, SELFPAY ==
--- NOTE | ~2022-10-06 | MM_ITS ---
EXAMINATION: MM screening [facility] w chema HISTORY: Screening mammogram, family history of breast cancer in her mother. TECHNIQUE: Craniocaudal and mediolateral oblique 3-D tomosynthesis images were obtained and synthetic 2-D images were generated. CAD analysis was submitted and interpreted. COMPARISON: 01/04/2021, 08/30/2017, 10/05/2015 BREAST PARENCHYMAL COMPOSITION: There are scattered areas of fibroglandular density. FINDINGS: No suspicious mass, calcification, or architectural distortion are identified in either galo ast to suggest malignancy. There has been no suspicious interval change. IMPRESSION: 1. No mammographic evidence of malignancy. 2. Recommend routine screening mammography in one year. BI-RADS Category 1: Negative Reviewed, dictated and finalized at location A. MANAGEMENT ASSOCIATE
== END 2022-10-06 09:21 | disposition home or self-care (01) ==
LOC: ANHIMG 09:23
PROVIDERS: PCP Family Medicine; Visit Provider Family Medicine
DX: Z12.31 Encounter for screening mammogram for malignant neoplasm of breast (principal)
CPT/HCPCS: 77063; 77067

== ENCOUNTER 2022-11-10 10:26 | Outpatient (CLI) | payer MEDICARE, SELFPAY ==
--- NOTE | ~2022-11-10 | US_ITS ---
EXAMINATION: US carotid duplex BI DATE: 11/10/2022 11:15 INDICATION: Transient global amnesia TECHNIQUE: Grayscale, color Doppler, and pulsed Doppler images of the cervical carotid arteries were obtained. The degree of vessel stenosis is placed in one of the following categories: normal, <50%, 5 0-69%, >=70% but less than near-occlusion, near-occlusion, or total occlusion. Note that percent sten osis relative to normal distal artery lumen diameter is indirectly measured from velocity measurement s as described by Favio, et al. Radiology 2003; 229:340-346. COMPARISON: None. FINDINGS: RIGHT: The right common carotid artery (CCA) peak systolic velocity (PSV) is 77 cm/s. The right internal car otid artery (ICA) PSV is 67 cm/s. The right ICA end-diastolic velocity (EDV) is 25 cm/s. The right IC A/CCA PSV ratio is 0.9. Grayscale and color Doppler images yield an estimate of <50% diameter reducti on from plaque in the ICA. The external carotid artery (ECA) PSV is 102 cm/s. There is antegrade flow in the right vertebral artery. LEFT: The left CCA PSV is 73 cm/s. The left ICA PSV is 72 cm/s. The left ICA EDV is 29 cm/s. The left ICA/C CA PSV ratio is 1.0. Grayscale and color Doppler images yield an estimate of <50% diameter reduction from plaque in the ICA. The ECA PSV is 72 cm/s. There is antegrade flow in the left vertebral artery. IMPRESSION: 1. <50% stenosis in the right internal carotid artery. 2. <50% stenosis in the left internal carotid artery. Reviewed, dictated and finalized at location A. SCIENCES DIRECTOR
== END 2022-11-10 10:27 | disposition home or self-care (01) ==
PROVIDERS: PCP Family Medicine; Visit Provider Nurse Practitioner
DX: I65.23 Occlusion and stenosis of bilateral carotid arteries (principal)
CPT/HCPCS: 93880

== ENCOUNTER 2022-12-12 08:52 | Outpatient (CLI) | payer MEDICARE, SELFPAY ==
[2022-12-12 09:59] LABS: Alanine Aminotransferase 21 U/L (6-35); Albumin Level 4.2 g/dL (3.5-5.1); Alkaline Phosphatase 103 U/L (38-126); Anion Gap 7 mmol/L (8-16); Aspartate Amino Transferase 22 U/L (14-36); Bilirubin,Total 0.5 mg/dL (0.2-1.3); Blood Urea Nitrogen 18 mg/dL (7-17); Calcium 8.9 mg/dL (8.4-10.2); Carbon Dioxide 30 mmol/L (22-30); Chloride 105 mmol/L (98-107); Cholesterol 228 mg/dL (0-200); Estimated Glomerular Filt Rate > 60; Glucose 103 mg/dL (65-110); HDL Direct 53 mg/dL; Sodium 142 mmol/L (137-145); Triglycerides 95 mg/dL (<150)
[2022-12-12 10:01] LABS: Hemoglobin A1C 5.5 % (<5.7)
[2022-12-12 10:10] LABS: LDL Cholesterol Direct 116 mg/dL
== END 2022-12-12 08:53 | disposition home or self-care (01) ==
PROVIDERS: PCP Family Medicine; Visit Provider Family Medicine
DX: R73.03 Prediabetes (principal); E78.2 Mixed hyperlipidemia; I10 Essential (primary) hypertension
CPT/HCPCS: 36415; 80053; 80061; 83036

== ENCOUNTER 2023-05-14 08:42 | Outpatient (CLI) | payer MEDICARE, SELFPAY ==
[2023-05-14 13:50] LABS: Hematocrit 43.1 % (37.0-47.0); Hemoglobin 13.6 g/dL (12.0-15.0); Mean Corpuscular HGB Conc 31.6 g/dl (32-36); Mean Corpuscular Hemoglobin 29.1 pg (26-34); Mean Corpuscular Volume 92.3 fl (80-100); Mean Platelet Volume 11.3 fl (7.4-10.4); Platelet Count Result 297 k/mm3 (150-375); Red Blood Count 4.67 M/mm3 (4.2-5.4); Red Cell Distribution Width 13.4 % (11.5-14.5); White Blood Count 5.5 K/mm3 (4.5-10.0)
[2023-05-14 13:56] LABS: Alanine Aminotransferase 22 U/L (6-35); Albumin Level 3.6 g/dL (3.5-5.1); Alkaline Phosphatase 81 U/L (38-126); Anion Gap 4 mmol/L (8-16); Aspartate Amino Transferase 33 U/L (14-36); Bilirubin,Total 0.5 mg/dL (0.2-1.3); Blood Urea Nitrogen 14 mg/dL (7-17); Calcium 8.9 mg/dL (8.4-10.2); Carbon Dioxide 33 mmol/L (22-30); Chloride 104 mmol/L (98-107); Cholesterol 195 mg/dL (0-200); Estimated Glomerular Filt Rate > 60; Glucose 90 mg/dL (65-110); HDL Direct 45 mg/dL; Potassium 4.5 mmol/L (3.4-5.0); Sodium 141 mmol/L (137-145); Triglycerides 132 mg/dL (<150)
[2023-05-14 14:06] LABS: LDL Cholesterol Direct 100 mg/dL
[2023-05-14 14:13] LABS: Free T4 Free Thyroxine 1.09 ng/mL (0.78-2.19)
[2023-05-14 14:29] LABS: Hemoglobin A1C 5.6 % (<5.7)
== END 2023-05-14 08:43 | disposition home or self-care (01) ==
LOC: ANHGOSHLAB 08:44
PROVIDERS: PCP Family Medicine; Visit Provider Family Medicine
DX: R73.03 Prediabetes (principal); E78.2 Mixed hyperlipidemia; I10 Essential (primary) hypertension; Z79.899 Other long term (current) drug therapy; E66.9 Obesity, unspecified
CPT/HCPCS: 36415; 80053; 80061; 83036; 84439; 84443; 85027

== ENCOUNTER 2023-08-30 13:15 | Outpatient (RCR) | payer MEDICARE, SELFPAY ==
--- NOTE | 2023-08-13 16:19 | OPREHPOC ---
Outpatient Therapy Plan of Care This is a Multidisciplinary Plan of Care that may contain components documented by all disciplines (PT, OT, and ST.) PT Problem 1 PT Problem #1 Knowledge Deficit PT Goal 1 Goal Pt to be IND with issued HEP Target Visit 8 PT Problem 2 PT Problem #2 Pain PT Goal 1 Goal Pt to report pain no greater than 3/10 in the last week Target Visit 8 PT Goal 2 Goal Pt to report 75% improvement in overall symptom Target Visit 8 PT Problem 3 PT Problem #3 Impaired Range of Motion PT Goal 1 Goal Pt to improve L knee active ROM to 120 deg Target Visit 8 PT Goal 2 Goal Pt to be able to demonstrate a full range long arc quad Target Visit 8 PT Problem 4 PT Problem #4 Impaired Gait PT Goal 1 Goal Pt to ambulate without deviations Target Visit 8 PT Goal 2 Goal Pt to ascend/descend stairs without an increase in pain Target Visit 8
--- NOTE | 2023-08-13 16:19 | PTOPEVAL1 ---
Assessment and note entered by Daly Rivera, PT, DPT Evaluation Information Assessment Status Evaluation Diagnosis erin knee pain Onset chronic Subjective Information Pt states during covid she was doing about 8 hours of gardening a day. She states to notice when shoveling and going up stairs she gets a sharp pain right at the patella. 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 She states when she gardens she spends a lot of time trying to hyperextend her knees. She declines pain at rest, or when walking, states most of the pain is with transitional movements. Reported Pain Level Pain Score 0: Self Report Assessment PT Clinical Summary Cady presents to therapy today for her initial evaluation with a diagnosis of erin knee pain. Today she demonstrates erin hip and knee weakness throughout, decreased patellar mobility erin, poor patellar resting position and gait deviations. Pt demonstrates decreased L knee active ROM compared to the R knee. Skilled therapy services are indicated to address the deficits noted above, to manage pain, and to improve functional mobility. Plan of Care Interventions Electrical Stimulation,Gait Training,Hot Pack/Cold Pack,Manual Therapy,Neuro Re-education,Patient/ Caregiver Educati,Therapeutic Activities, Therapeutic Exercise PT Services Indicated Yes Treatment Frequency and 2x/wk for 8 visits Duration These treatments will address the objective and functional deficits as defined above. The patient will be advanced safely and appropriately in order for the patient to progress towards his/her prior level of function. Additional exercises will be introduced and as well as a comprehensive home exercise program upon discharge, if needed, ?to ensure carryover of functional gains achieved in the clinic. This treatment plan has been reviewed and agreement upon by the patient.
--- NOTE | 2023-09-04 12:50 | PCPTNOTE ---
Patient called to cancel due to conflicting appointment.
--- NOTE | 2023-09-11 08:58 | PCPTNOTE ---
Patient called & cancelled scheduled appointment this date due to not wanting to continue therapy until speaking with her doctor.
--- NOTE | 2023-10-10 11:25 | PTOPDC ---
Assessment and note entered by Daly Rivera, PT, DPT Evaluation Information Assessment Status Discharge - Pt Not Present Diagnosis erin knee pain Onset chronic Subjective Information Called and spoke with pt. She states she is going to a new orthopedic doctor. She states her knee pain needs to be under control before she will consider continuing therapy. Assessment PT Clinical Summary Cady completed 5 visits of skilled therapy from 08/13/23 to 09/11/23. She will be discharged at this time d/t inactivity at therapy and switching doctor. Informed she will need a new order when she plans to return.
== END 2023-10-10 12:52 | disposition home or self-care (01) ==
LOC: ANHGOSHPT 13:15
PROVIDERS: PCP Family Medicine; Visit Provider Nurse Practitioner
DX: M25.561 Pain in right knee (principal); M25.562 Pain in left knee
CPT/HCPCS: 97110; 97140; 97161; 97530

== ENCOUNTER 2024-02-06 14:34 | Outpatient (CLI) | payer MEDICARE, SELFPAY ==
--- NOTE | ~2024-02-06 | XR_ITS ---
EXAMINATION: XR humerus RT DATE: 02/06/2024 14:55 INDICATION: Right shoulder pain post fall 4 days prior TECHNIQUE: Internally and externally rotated views of the right humerus were obtained. COMPARISON: None. FINDINGS: Bone alignment is normal. No fracture. Mild osteoarthritis at the right acromioclavicular and elbow j oints. There is suggestion of additional mild osteoarthritis at the right glenohumeral joint which is not well profiled limiting evaluation. There appears to be narrowing of the subacromial space with t he arm and externally rotated position. Soft tissues are unremarkable. IMPRESSION: 1. 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 No acute osseous abnormality. Reviewed, dictated and finalized at location B. IMPRESSION: 1. 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 No acute osseous abnorm ality.
--- NOTE | ~2024-02-06 | XR_ITS ---
XR shoulder RT min 2V 02/06/2024 14:56 Indication: Right shoulder pain Procedure: 4 views right shoulder Comparison: No prior studies for comparison. Findings: No fracture, subluxation or dislocation. There is anatomic alignment. No focal soft tissue abnormality. No foreign bodies. Impression: 1: No significant bone or joint abnormality. Reviewed, dictated and finalized at location A. Impression: 1: No significant bone or joint abnormality.
--- NOTE | ~2024-02-06 | XR_ITS ---
XR_[id number] 02/06/2024 14:56 Indication: Fall. Neck pain. Procedure: 4 view cervical spine Comparison: No prior studies for comparison. Findings: There is multilevel uncinate and facet hypertrophy. There is disc narrowing at C4-5 and C5- 6. No prevertebral soft tissue swelling. Lung apices are normal. Odontoid process is unremarkable. No acute fracture or traumatic malalignment. Impression: 1: Moderate cervical spondylosis. Reviewed, dictated and finalized at location A. Impression: 1: Moderate cervical spondylosis.
== END 2024-02-06 14:35 ==
PROVIDERS: PCP Family Medicine; Visit Provider Nurse Practitioner
DX: M47.892 Other spondylosis, cervical region (principal); M19.021 Primary osteoarthritis, right elbow; M19.011 Primary osteoarthritis, right shoulder
CPT/HCPCS: 72040; 73030; 73060

== ENCOUNTER 2024-02-13 10:12 | Outpatient (CLI) | payer MEDICARE, SELFPAY ==
--- NOTE | ~2024-02-13 | CT_ITS ---
Non-contrast Head CT History: Head injury Technique: Axial non-contrast imaging of the brain was performed. Dose reduction technique was used on this scan by utilizing automated exposure control and iterative reconstruction technique. The dose -length product (DLP) was 726.40 mGy-cm. Findings: There is no evidence of intracranial hemorrhage, mass lesion, or acute infarct. Brain par enchyma appears normal. The ventricles and subarachnoid spaces are normal in size. The calvarium ap pears normal. The visualized paranasal sinuses and mastoid air cells are clear. Impression: No significant abnormality seen. Reviewed, dictated and finalized at location . Impression: No significant abnormality seen.
--- NOTE | ~2024-02-13 | MR_ITS ---
MRI of the right shoulder Technique: Axial proton-density fat-sat images, coronal proton density fat-sat and T2 fat-sat images, and sagittal T1-weighted and T2 fat-sat images were acquired. Clinical History: Pain Findings: There is mild to moderate AC joint degenerative change, probably reactive change of the dis yasmine clavicle. Coracoclavicular, coracoacromial, and coracohumeral ligaments are intact. There is a full-thickness tear involving the entire supraspinatus tendon, which is retracted to the l evel glenohumeral joint. Fluid-filled gap measures approximately 3.9 x 2.8 cm in extent. Infraspinatu s tendon is intact. There is moderate to severe subscapularis tendinosis, possible low-grade partial thickness articular surface tearing. Tendon of long head of the biceps is intact, with intra-articula r tendinosis. No definite labral tear identified. Inferior glenohumeral ligament is intact. There is small glenohumeral joint effusion. There is small amount of fluid in the subacromial/subdeltoid bursa. There is fluid distention of the subcoracoid bur sa. No muscle atrophy or edema evident. There is enthesopathic cystic change at the lesser tuberosity of the humerus. Humeral head is high riding with diffuse chondral thinning.. Impression: Complete, full-thickness tear of the supraspinatus tendon, as detailed above. Advanced tendinosis of the subscapularis and biceps tendons, with possible low-grade partial thicknes s articular surface tearing of the subscapularis tendon. Mild to moderate AC joint degenerative change. High riding humeral head, with subcoracoid bursitis. Reviewed, dictated and finalized at [facility]. Impression: Complete, full-thickness tear of the supraspinatus tendon, as detailed above. Advanced tendinosis of the subscapularis and biceps tendons, with possible low- grade partial thickness articular surface tearing of the subscapularis tendon. Mild to moderate AC joint degenerative change. High riding humeral head, with subcoracoid bursitis.
== END 2024-02-13 10:13 ==
LOC: GOSHIMG 10:13
PROVIDERS: PCP Family Medicine; Visit Provider Nurse Practitioner
DX: S09.90XA Unspecified injury of head, initial encounter (principal); X58.XXXA Exposure to other specified factors, initial encounter; M19.011 Primary osteoarthritis, right shoulder; M75.121 Complete rotator cuff tear or rupture of right shoulder, not specified as traumatic
CPT/HCPCS: 70450; 73221

== ENCOUNTER 2024-04-30 08:38 | Outpatient (CLI) | payer MEDICARE, SELFPAY ==
--- NOTE | ~2024-04-30 | MM_ITS ---
EXAMINATION: MM screening [facility] w chema HISTORY: Screening mammogram, family history of breast cancer in her mother. TECHNIQUE: Craniocaudal and mediolateral oblique 3-D tomosynthesis images were obtained and synthetic 2-D images were generated. CAD analysis was submitted and interpreted. COMPARISON: 10/06/2022, 01/04/2021 BREAST PARENCHYMAL COMPOSITION:Not Dense. There are scattered areas of fibroglandular density. FINDINGS: No suspicious mass, calcification, or architectural distortion are identified in either galo ast to suggest malignancy. There has been no suspicious interval change. IMPRESSION: No mammographic evidence of malignancy. Recommend routine screening mammography in one year. BI-RADS Category 1: Negative Reviewed, dictated and finalized at location .
--- NOTE | ~2024-04-30 | DEXA_ITS ---
Bone Density Report Name: DUDLEY SENA Age: 68 Sex: Female Ethnicity: White Date of : 1955 Indication: postmenopausal; screening for osteoporosis; parental hip fracture; height loss; Referring Provider: SUKHDEV EDWARDS Study: Bone densitometry was performed. Exam Date: April 30, 2024 Accession number: [id number] Bone Density: Region BMD T-score Z-score Classification AP Spine(L1-L4) 1.043 0.0 2.1 Normal Femoral Neck (Left) 0.702 -1.3 0.5 Osteopenia Total Hip (Left) 0.887 -0.5 1.1 Normal Femoral Neck (Right) 0.675 -1.6 0.3 Osteopenia Total Hip (Right) 0.896 -0.4 1.2 Normal Total Hip Mean 0.891 -0.5 1.2 Normal World Health Organization criteria for BMD impression classify patients as: Normal (T-score at or above -1.0), Osteopenia (T-score between -1.0 and -2.5), or Osteoporosis (T-score at or below -2.5). 10-year Fracture Risk(1): Major Osteoporotic Fracture 14% Hip Fracture 3.0% Reported Risk Factors: [place] (), Neck BMD=0.675, BMI=42.1, parental fracture (1) FRAX(R) Version 3.08. Fracture probability calculated for an untreated patient. Fracture probability may be lower if the patient has received treatment. Clinical Information Provided by Patient: Parent has had a hip fracture Has used the following medications: Vitamin D Patient maximum height was 64 Menopause Age: 46 Does not regularly consume dairy products Drinks caffeinated beverages Onset of menses at age 12 Number of children 3 Impression: The patient has low bone mass, based on the Right Femoral Neck T-score. The patient has an estimated ten-year risk of hip fracture of 3% and an estimated ten-year risk of major fracture of 14%, based on the WHO FRAX algorithm. The patient has risk factors, including: parental hip fracture. Discussion: BONE DENSITY IS LOW AT ONE OR MORE SKELETAL SITES. THE PATIENT'S BMD AND CLINICAL RISK FACTORS CONTRIBUTE TO THIS PATIENT'S INCREASED RISK OF FRACTURE. This patient's lowest T-score is low at one or more skeletal sites. It meets the World Health Organization's (WHO) criteria for ?low bone mass? (T-score between -1.0 and -2.5). The patient's 10-year risk of hip fracture as calculated by FRAX exceeds the threshold where pharmacological therapy is recommended by the National Osteoporosis Foundation (NOF). However, all treatment decisions require clinical judgment and consideration of individual patient factors, including patient preferences, comorbidities, previous drug use, risk factors not captured in the FRAX model (e.g., frailty, falls, vitamin D deficiency, increased bone turnover, interval significant decline in bone density) and possible under or overestimation of fracture risk by FRAX. The patient should follow a healthful lifestyle (good nutrition
== END 2024-04-30 08:39 | disposition home or self-care (01) ==
LOC: ANHIMG 08:42
PROVIDERS: PCP Family Medicine; Visit Provider Family Medicine
DX: Z12.31 Encounter for screening mammogram for malignant neoplasm of breast (principal); M85.88 Other specified disorders of bone density and structure, other site; M85.852 Other specified disorders of bone density and structure, left thigh; M85.851 Other specified disorders of bone density and structure, right thigh
CPT/HCPCS: 77063; 77067; 77080

== ENCOUNTER 2024-05-28 08:32 | Outpatient (CLI) | payer MEDICARE, SELFPAY ==
[2024-05-28 13:39] LABS: Alanine Aminotransferase 17 U/L (6-35); Albumin Level 4.2 g/dL (3.5-5.1); Alkaline Phosphatase 90 U/L (38-126); Anion Gap 8 mmol/L (4-12); Aspartate Amino Transferase 29 U/L (14-36); Bilirubin,Total 0.6 mg/dL (0.2-1.3); Blood Urea Nitrogen 16 mg/dL (7-17); Calcium 9.1 mg/dL (8.4-10.2); Carbon Dioxide 30 mmol/L (22-30); Chloride 102 mmol/L (98-107); Cholesterol 207 mg/dL (0-200); Estimated Glomerular Filt Rate > 60; Glucose 89 mg/dL (65-110); HDL Direct 59 mg/dL; Potassium 4.3 mmol/L (3.4-5.0); Sodium 140 mmol/L (137-145); Triglycerides 77 mg/dL (<150)
[2024-05-28 13:42] LABS: Hemoglobin A1C 5.9 % (<5.7)
[2024-05-28 13:55] LABS: LDL Cholesterol Direct 107 mg/dL
[2024-05-28 14:40] LABS: Vitamin D 25 Hydroxy 42.4 ng/mL
[2024-05-28 14:53] LABS: Hepatitis C Virus Antibody Negative (Negative)
== END 2024-05-28 08:33 | disposition home or self-care (01) ==
PROVIDERS: PCP Family Medicine; Visit Provider Nurse Practitioner
DX: E78.2 Mixed hyperlipidemia (principal); R73.03 Prediabetes; E55.9 Vitamin D deficiency, unspecified; M25.561 Pain in right knee; M25.562 Pain in left knee; M85.88 Other specified disorders of bone density and structure, other site; Z11.59 Encounter for screening for other viral diseases
CPT/HCPCS: 36415; 80053; 80061; 82306; 83036; 86803

== ENCOUNTER 2024-07-29 10:11 | Outpatient (CLI) | payer MEDICARE, SELFPAY ==
--- NOTE | ~2024-07-29 | XR_ITS ---
Right Knee Technique: AP, lateral, and sunrise views were obtained. Clinical History: Pain Findings: No fracture or dislocation is seen. Osseous alignment is anatomic. There is mild degenerati ve spurring, most prominent at the medial joint line. Soft tissues are unremarkable. No joint effusio n is seen. Impression: Mild degenerative spurring, as above. Reviewed, dictated and finalized at location M. Impression: Mild degenerative spurring, as above.
--- NOTE | ~2024-07-29 | XR_ITS ---
Left Knee Technique: AP, lateral, and sunrise views were obtained. Clinical History: Pain Findings: No fracture or dislocation is seen. Osseous alignment is anatomic. Joint there is mild dege nerative spurring at the medial joint line and patella. Soft tissues are unremarkable. No joint effus ion is seen. Impression: Mild degenerative spurring, as above. Reviewed, dictated and finalized at location M. Impression: Mild degenerative spurring, as above.
== END 2024-07-29 10:12 | disposition home or self-care (01) ==
PROVIDERS: PCP Orthopaedic Surgery; Visit Provider Family Medicine
DX: M25.562 Pain in left knee (principal); M25.561 Pain in right knee; M76.9 Unspecified enthesopathy, lower limb, excluding foot
CPT/HCPCS: 73564

== ENCOUNTER 2024-10-02 09:22 | Outpatient (CLI) | payer MEDICARE, SELFPAY ==
[2024-10-02 12:42] LABS: Hematocrit 45.1 % (37.0-47.0); Hemoglobin 14.2 g/dL (12.0-15.0); Mean Corpuscular HGB Conc 31.5 g/dl (32-36); Mean Corpuscular Hemoglobin 29.1 pg (26-34); Mean Corpuscular Volume 92.4 fl (80-100); Mean Platelet Volume 11.4 fl (7.4-10.4); Platelet Count Result 276 k/mm3 (150-375); Red Blood Count 4.88 M/mm3 (4.2-5.4); Red Cell Distribution Width 13.4 % (11.5-14.5); White Blood Count 4.8 K/mm3 (4.5-10.0)
[2024-10-02 13:01] LABS: Alanine Aminotransferase 17 U/L (6-35); Albumin Level 3.8 g/dL (3.5-5.1); Alkaline Phosphatase 89 U/L (38-126); Anion Gap 3 mmol/L (4-12); Aspartate Amino Transferase 37 U/L (14-36); Bilirubin,Total 0.6 mg/dL (0.2-1.3); Blood Urea Nitrogen 17 mg/dL (7-17); Calcium 9.2 mg/dL (8.4-10.2); Carbon Dioxide 32 mmol/L (22-30); Chloride 104 mmol/L (98-107); Cholesterol 217 mg/dL (0-200); Estimated Glomerular Filt Rate > 60; Glucose 95 mg/dL (65-110); HDL Direct 59 mg/dL; Potassium 4.5 mmol/L (3.4-5.0); Sodium 139 mmol/L (137-145); Triglycerides 98 mg/dL (<150)
[2024-10-02 13:13] LABS: LDL Cholesterol Direct 113 mg/dL
[2024-10-02 13:17] LABS: Hemoglobin A1C 5.7 % (<5.7)
[2024-10-02 13:21] LABS: Vitamin D 25 Hydroxy 30.9 ng/mL
== END 2024-10-02 09:23 | disposition home or self-care (01) ==
PROVIDERS: PCP Family Medicine; Visit Provider Nurse Practitioner
DX: I10 Essential (primary) hypertension (principal); R73.03 Prediabetes; E55.9 Vitamin D deficiency, unspecified
CPT/HCPCS: 36415; 80053; 80061; 82306; 83036; 84443; 85027

== ENCOUNTER 2025-01-29 14:56 | Outpatient (CLI) | payer MEDICARE, SELFPAY ==
--- NOTE | ~2025-01-29 | XR_ITS ---
EXAMINATION: XR chest 2V 01/29/2025 15:23 INDICATION: Cough PROCEDURE: 2 view chest COMPARISON: 08/15/2021 EXAMINATION: XR chest 2V 01/29/2025 15:23 INDICATION: Cough PROCEDURE: 2 view chest COMPARISON: 08/15/2021 FINDINGS: The lungs are clear. The cardiomediastinal silhouette is within normal limits. There are no pleural effusions. There is no pneumothorax suspected. IMPRESSION: 1: NO ACUTE CARDIOPULMONARY DISEASE. FINDINGS: The lungs are clear. The cardiomediastinal silhouette is within normal limits. There are no pleural effusions. There is no pneumothorax suspected. IMPRESSION: 1: NO ACUTE CARDIOPULMONARY DISEASE. Reviewed, dictated and finalized at location A. IMPRESSION: 1: NO ACUTE CARDIOPULMONARY DISEASE. FINDINGS: The lungs are clear. The cardiomediastinal silhouette is within norm al limits. There are no pleural effusions. There is no pneumothorax suspected .
== END 2025-01-29 14:57 | disposition home or self-care (01) ==
PROVIDERS: PCP Nurse Practitioner; Visit Provider Nurse Practitioner
DX: R05.9 Cough, unspecified (principal)
CPT/HCPCS: 71046

== ENCOUNTER 2025-05-26 08:15 | Outpatient (CLI) | payer MEDICARE, SELFPAY ==
--- OUTSIDE RECORDS SUMMARY | 2025-05-26 08:18 | XMS_ITS | Encounter Summary ---
Author Organization [facility] Address 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
--- OUTSIDE RECORDS SUMMARY | 2025-05-26 08:18 | XMS_ITS | Encounter Summary ---
Author Organization [facility] Address 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
--- OUTSIDE RECORDS SUMMARY | 2025-05-26 08:18 | XMS_ITS | Clinical Summary ---
Author Organization [facility] Address [address] [place] [address] Care Team Providers Care Teacher Visually Impaired Name Role Phone Nelida Gallego DO Primary Care Provider +1- [phone] Allergies Active Allergy Reactions Criticality Noted Date Comments Penicillins Hives Medium 02/25/2020 Sulfa (Sulfonamide Antibiotics) Hives Medium 01/28 Medications irbesartan (AVAPRO) 150 mg tablet Take 1 tablet (150 mg total) by mouth daily 09/04/2020 Active EPINEPHrine 0.3 mg/0.3 mL auto-injection syringe as directed 05/02/2023 Active naproxen (NAPROSYN) 500 mg tablet Take 1 tablet (500 mg total) by mouth 2 (two) times a day 02/19/2024 Active aspirin 81 mg enteric coated tablet Take 1 tablet (81 mg total) by mouth daily Active cholecalciferol 25 mcg (1,000 unit) tablet Take 1 tablet (1,000 Units total) by mouth daily Active Active Problems Problem Noted Date Diagnosed Date Other chest pain 05/26/2021 Essential hypertension 05/26/2021 Convergence insufficiency 09/28/2020 Overview (09/28/2020): Prism reading glasses 2019- [employer] Assessment & Plan (02/25/2025 9:41 AM CDT): +noticing more fatigue and difficulty after ~10 mins of near activities -no true diplopia per pt -has prism glasses from Dr. Wild x 2019; stopped wearing them after a few times as she felt they were difficult to adapt to XP near>>distance; neutralized with 20BI at near, 2BI at distance -recommend trialing prism glasses from Dr. Wild; discussed adaptation period ~2 weeks -also discussed vision therapy; I think she would be a great candidate for this -printed information regarding local [facility] that do vision therapy near her -RTC 6 months repeat measurements Assessment & Plan (09/28/2020 3:09 PM AUTOCLAVE OPERATOR): Prism reading glasses 2020- [employer] Uses PRN. Helps. Rarely has diplopia. Can try convergence exercise. Age-related nuclear cataract of both eyes 2019 Assessment & Plan (02/25/2025 9:41 AM CDT): -mild; not yet visually significant -ok to continue with habitual specs -follow Assessment & Plan (09/28/2020 3:09 PM AUTOCLAVE OPERATOR): Not visually significant. Do not recommend surgery at this time. Continue to monitor. Patient to call if problems with activities of daily living. Brochure offered/given. Dry eye syndrome of both eyes 02/25/2020 Assessment & Plan (09/28/2020 3:09 PM AUTOCLAVE OPERATOR): Recommend increase lubricant eye drops to 4 times/day; consider preservative- free drops, especially if using drops more than that. Add hot compresses with lid scrubs to improve quality of tears. Assessment & Plan (02/25/2020 12:39 PM CDT): Warm compresses, digital massage, flax seed oil Retaine QID both eyes (OU) Retain DIOGENES at bedtime (QHS) Stressed good hydration Resolved Problems Problem Noted Date Diagnosed Date Resolved Date Conjunctivitis 02/25/2020 09/28/2020 Encounters Date Type Department Care Team Description 03/18/2025 11:30 AM CDT Office Visit [facility] Orthopaedic Surgery [address] [place] [address] Medical Office Building [address] [place] [address] Huan Leary MD Chronic pain of both knees (Primary Dx); Primary osteoarthritis of right knee; Chronic pain of right knee 03/18/2025 11:00 AM CDT - 03/18/2025 11:59 PM CDT Hospital Encounter [facility] [address] [facility] [address] [place] [phone] Chronic pain of both knees Discharge Disposition: Discharge to home or self care 02/25/2025 8:00 AM CDT Office Visit [facility] Ophthalmology [address] [facility] [address], [address] [place] [address] Opal Winters, RADHA Convergence insufficiency (Primary Dx); Age-related nuclear cataract of both eyes from Last 3 Months Immunizations Immunization Administration Dates Next Due Flucelvax Influenza Quad 07/16/2020 Surgical History Surgery Date Site/Laterality Comments CHOLECYSTECTOMY SECTION CARPAL TUNNEL RELEASE Medical History Medical History Date Comments Hypertension Eczema Sleep apnea Arthritis Cataract Family History Medical History Relation Name Comments No Known Problems Brother Heart failure Father No Known Problems Father's Brother No Known Problems Father's Sister No Known Problems Maternal Grandfather No Known Problems Maternal Grandmother Heart disease Mother Hypertension Mother No Known Problems Mother's Brother No Known Problems Mother's Sister Arthritis Other Gout Other No Known Problems Paternal Grandfather No Known Problems Paternal Grandmother No Known Problems Sister Relation Name Status Comments Brother Father (Age 89) Father's Brother Father's Sister Maternal Grandfather Maternal Grandmother Mother (Age 92) Mother's Brother Mother's Sister Other Paternal Grandfather Paternal Grandmother Sister Social History Tobacco Use Types Packs/Day Years Used Date Smoking Tobacco: Never Smokeless Tobacco: Never Comments Unknown Sex and Gender Information Value Date Recorded Sex Assigned at Not on file Legal Sex Female 2:31 AM AUTOCLAVE OPERATOR Gender Identity Not on file Sexual Orientation Not on file Obstetrics History Last Filed Vital Signs Vital Sign Reading Time Taken Comments Blood Pressure 138/83 02/27/2024 10:58 AM CDT Pulse 71 02/27/2024 10:58 AM CDT Temperature 36.8 C (98.2 F) 07/01/2023 6:09 PM CDT Respiratory Rate 24 07/01/2023 6:09 PM CDT Oxygen Saturation 97% 07/01/2023 6:09 PM CDT Inhaled Oxygen Concentration - - Weight 100.7 kg (222 lb) 03/18/2025 11:50 AM CDT Height 156.2 cm (5' 1.5) 03/18/2025 11:50 AM CD T Body Mass Index 41.27 03/18/2025 11:50 AM CDT Plan of Treatment Health Maintenance Due Date Last Done Comments Breast Cancer Screening-Mammogram 1955 Colon Cancer Screening-Colonoscopy 1955 Depression Screening 1955 Fall Risk Assessment 1955 Hepatitis C Screening 1955 Osteoporosis Screening-Bone Density Scan 1955 DTaP/Tdap/Td Vaccine (1 - Tdap) 1964 Hepatitis B Screening 1971 Pneumococcal vaccine 65+ (1 of 1 - PCV) 2003 Zoster Vaccine (1 of 2) 2003 Well Visit 65+ 2018 Influenza Vaccine (#1) 2025 07/16/2020 Procedures Procedure Name Priority Date/Time Associated Diagnosis Comments XR KNEE LEFT 4 OR MORE VIEWS Schedule Routine, Read Routine (OP Routine) 03/18/2025 11:42 AM CDT Chronic pain of both knees XR KNEE RIGHT 4 OR MORE VIEWS Schedule Routine, Read Routine (OP Routine) 03/18/2025 11:42 AM CDT Chronic pain of both knees from Last 3 Months Results * XR Knee Right 4 or More Views (03/18/2025 11:42 AM CDT) Anatomical Region Laterality Modality Lower Extremities, Knee Right Computed Radiography 03/18/2025 12:0 1 PM CDT Impressions 03/18/2025 12:01 PM CDT Moderate to severe patellofemoral compartment predominant tricompartmental right knee osteoarthritis. Electronically signed by: Micah Tierney M.D. Narrative 03/18/2025 12:01 PM CDT EXAMINATION: XR KNEE RIGHT 4 OR MORE VIEWS, XR KNEE LEFT 4 OR MORE VIEWS HISTORY: right knee pain COMPARISON: 11/30/2023 FINDINGS: No evidence of acute fracture or dislocation. There is moderate to severe patellofemoral compartment predominant tricompartmental right knee osteoarthritis, which appears similar to slightly progressed from 11/30/2023. No significant knee effusion. Procedure Note Micah Tierney MD - 03/18/2025 EXAMINATION: XR KNEE RIGHT 4 OR MORE VIEWS, XR KNEE LEFT 4 OR MORE VIEWS HISTORY: right knee pain COMPARISON: 11/30/2023 FINDINGS: No evidence of acute fracture or dislocation. There is moderate to severe patellofemoral compartment predominant tricompartmental right knee osteoarthritis, which appears similar to slightly progressed from 11/30/2023. No significant knee effusion. IMPRESSION: Moderate to severe patellofemoral compartment predominant tricompartmental right knee osteoarthritis. Electronically signed by: Micah Tierney M.D. Huan Leary MD IMG XR PROCEDURES Final R esult * XR Knee Left 4 or More Views (03/18/2025 11:42 AM CDT) Anatomical Region Laterality Modality Lower Extremities, Knee Left Computed Radiography 03/18/2025 12:0 1 PM CDT Impressions 03/18/2025 12:01 PM CDT Moderate to severe patellofemoral compartment predominant tricompartmental right knee osteoarthritis. Electronically signed by: Micah Tierney M.D. Narrative 03/18/2025 12:01 PM CDT EXAMINATION: XR KNEE RIGHT 4 OR MORE VIEWS, XR KNEE LEFT 4 OR MORE VIEWS HISTORY: right knee pain COMPARISON: 11/30/2023 FINDINGS: No evidence of acute fracture or dislocation. There is moderate to severe patellofemoral compartment predominant tricompartmental right knee osteoarthritis, which appears similar to slightly progressed from 11/30/2023. No significant knee effusion. Procedure Note Micah Tierney MD - 03/18/2025 EXAMINATION: XR KNEE RIGHT 4 OR MORE VIEWS, XR KNEE LEFT 4 OR MORE VIEWS HISTORY: right knee pain COMPARISON: 11/30/2023 FINDINGS: No evidence of acute fracture or dislocation. There is moderate to severe patellofemoral compartment predominant tricompartmental right knee osteoarthritis, which appears similar to slightly progressed from 11/30/2023. No significant knee effusion. IMPRESSION: Moderate to severe patellofemoral compartment predominant tricompartmental right knee osteoarthritis. Electronically signed by: Micah Tierney M.D. Huan Leary MD IMG XR PROCEDURES Final R esult from Last 3 Months Insurance MEDICARE AET[employer] SENIOR SUPPLEMENT T SENIOR SUPPLEMENT MEDICARE MEDICARE AET[employer] SENIOR SUPPLEMENT Care Teams Teacher Visually Impaired Relationship Specialty Start Date End Date Nelida Gallego DO [address] [place] [address] [address] PCP - General Family Medicine 11/30/23
--- OUTSIDE RECORDS SUMMARY | 2025-05-26 08:18 | XMS_ITS | Referral Summary ---
Author Organization [facility] Address [address] [place] [address] Care Team Providers Care Welfare Administrator Name Role Phone Nelida Gallego DO Primary Care Provider +1- [phone] Encounters Date Type Department Care Team Description 03/18/2025 11:00 AM CDT - 03/18/2025 11:59 PM CDT Hospital Encounter [facility] [address] [place] [address] [address] [place] [phone] Chronic pain of both knees Discharge Disposition: Discharge to home or self care 03/18/2025 11:30 AM CDT Office Visit [facility] Orthopaedic Surgery [address] [facility] Medical Office Building [address] [place] [phone] Huan Leary MD Chronic pain of both knees (Primary Dx); Primary osteoarthritis of right knee; Chronic pain of right knee 02/25/2025 8:00 AM CDT Office Visit [facility] Ophthalmology [address] [place] [address] Opal Winters, RADHA Convergence insufficiency (Primary Dx); Age-related nuclear cataract of both eyes from Last 3 Months Allergies Active Allergy Reactions Criticality Noted Date [...] candidate for this -printed information regarding local [facility] that do vision therapy near her -RTC 6 months repeat measurements Assessment & Plan (09/28/2020 3:09 PM NON GARMENT SEWING MACHINE OPERATOR): Prism reading glasses [employer] Uses PRN. Helps. Rarely has diplopia. Can try convergence exercise. Age-related nuclear cataract of both eyes 2019 Assessment & Plan (02/25/2025 9:41 AM CDT): -mild; not yet visually significant -ok to continue with habitual specs -follow Assessment & Plan (09/28/2020 3:09 PM NON GARMENT SEWING MACHINE OPERATOR): Not visually significant. Do not recommend surgery at this time. Continue to monitor. Patient to call if problems with activities of daily living. Brochure offered/given. Dry eye syndrome of both eyes 02/25/2020 Assessment & Plan (09/28/2020 3:09 PM NON GARMENT SEWING MACHINE OPERATOR): Recommend increase lubricant eye drops to [...] Diagnosed Date Resolved Date Conjunctivitis 02/25/2020 09/28/2020 Immunizations Immunization Administration Dates Next Due Flucelvax Influenza Quad 07/16/2020 Social History Tobacco Use Types Packs/Day Years Used Date Smoking Tobacco: Never Smokeless Tobacco: Never Comments Unknown Sex and Gender Information Value Date Recorded Sex Assigned at Not on file Legal Sex Female 2:31 AM NON GARMENT SEWING MACHINE OPERATOR Gender Identity Not on file Sexual Orientation Not on file Last Filed Vital Signs Vital Sign Reading [...] 03/18/2025 11:50 AM CDT Plan of Treatment Not on file Procedures Procedure Name Priority Date/Time Associated Diagnosis [...] osteoarthritis. Electronically signed by: Micah Tierney M.D. [facility] Keagan Leary MD IMG XR PROCEDURES Final R esult from Last 3 Months [place] [address] [employer] SENIOR SUPPLEMENT [facility] [place] MEDICARE AETNA SENIOR SUPPLEMENT Care Teams Welfare Administrator Relationship Specialty Start Date End Date Nelida Gallego DO [facility] [facility] [address] [place] [address] [place] [id number] PCP - General Family Medicine 11/30/23
--- OUTSIDE RECORDS SUMMARY | 2025-05-26 08:18 | XMS_ITS | Clinical Summary ---
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 MANAGER SAS Gender Identity Not on file Sexual Orientation Not on file Plan of Treatment Health Maintenance Due Date Last Done Comments DTAP/TDAP/TD VACCINES (1 - Tdap) 1972 BREAST CANCER SCREENING 1993 COLORECTAL SCREENING 1998 Colorectal Cancer Screening 1998 FIT-DNA Q 3 years 1998 FIT/FOBT Q 1 year 1998 Flex Sig/CT Colonography Q 5 years 1998 PNEUMOCOCCAL VACCINE 50+ YEARS (1 of 1 - PCV) 05/25/20 03 ZOSTER VACCINE (1 of 2) 2003 OSTEOPOROSIS SCREENING 2018 INFLUENZA VACCINE (#1) 2025 RSV VACCINE (60+ or ) (1 - 1-dose 75+ series) 2028 Care Teams Giant Tire Repairer Relationship Specialty Start Date End Date Irving Adams MD [address] [place] [address] PCP - General 07/18/04
[2025-05-26 12:58] LABS: Hematocrit 43.2 % (37.0-47.0); Hemoglobin 13.5 g/dL (12.0-15.0); Mean Corpuscular HGB Conc 31.3 g/dl (32-36); Mean Corpuscular Hemoglobin 28.9 pg (26-34); Mean Corpuscular Volume 92.5 fl (80-100); Platelet Count Result 289 k/mm3 (150-375); Red Blood Count 4.67 M/mm3 (4.2-5.4); White Blood Count 4.5 K/mm3 (4.5-10.0)
[2025-05-26 13:05] LABS: Alanine Aminotransferase 21 U/L (6-35); Albumin Level 4.0 g/dL (3.5-5.1); Alkaline Phosphatase 86 U/L (38-126); Anion Gap 3 mmol/L (4-12); Aspartate Amino Transferase 33 U/L (14-36); Bilirubin,Total 0.4 mg/dL (0.2-1.3); Blood Urea Nitrogen 16 mg/dL (7-17); Calcium 9.5 mg/dL (8.4-10.2); Carbon Dioxide 29 mmol/L (22-30); Chloride 103 mmol/L (98-107); Cholesterol 205 mg/dL (0-200); Estimated Glomerular Filt Rate > 60; Glucose 90 mg/dL (65-110); HDL Direct 51 mg/dL; Potassium 4.4 mmol/L (3.4-5.0); Sodium 135 mmol/L (137-145); Total Protein 7.1 g/dL (6.3-8.2); Triglycerides 119 mg/dL (<150)
[2025-05-26 13:41] LABS: Thyroid Stimulating Hormone 1.340 uIU/mL (0.465-4.680)
[2025-05-26 17:18] LABS: Hemoglobin A1C 5.7 % (<5.7)
[2025-05-30 05:07] LABS: 1,25-Dihydroxy, Vitamin D-2 <10 pg/mL (.); 1,25-Dihydroxy, Vitamin D-3 55 pg/mL (.); Total 1,25-Dihydroxy,Vitamin D 59 pg/mL (.)
== END 2025-05-26 08:16 | disposition home or self-care (01) ==
LOC: ANHGOSHLAB 08:15
PROVIDERS: PCP Family Medicine; Visit Provider Family Medicine
DX: I10 Essential (primary) hypertension (principal); E78.2 Mixed hyperlipidemia; R73.03 Prediabetes; E55.9 Vitamin D deficiency, unspecified; E66.01 Morbid (severe) obesity due to excess calories; Z68.39 Body mass index [BMI] 39.0-39.9, adult; E66.812 Obesity, class 2; Z79.899 Other long term (current) drug therapy
CPT/HCPCS: 36415; 80053; 80061; 82652; 83036; 84443; 85027

== ENCOUNTER 2025-08-03 07:57 | Outpatient (CLI) | payer MEDICARE, SELFPAY ==
--- OUTSIDE RECORDS SUMMARY | 2025-08-03 08:07 | XMS_ITS | Clinical Summary ---
Author Organization [facility] Address [address] [place] [address] Care Team Providers Care Safety Clothing And Equipment Developer Name Role Phone Nelida Gallego DO Primary Care Provider +1- [phone] Allergies Active Allergy Reactions Criticality Noted Date [...] measurements Assessment & Plan (09/28/2020 3:09 PM PRINTING MACHINIST): Prism reading glasses 2019- [employer] Uses PRN. Helps. Rarely has diplopia. Can try convergence exercise. Age-related nuclear cataract of both eyes 2019 Assessment & Plan (02/25/2025 9:41 AM CDT): -mild; not yet visually significant -ok to continue with habitual specs -follow Assessment & Plan (09/28/2020 3:09 PM PRINTING MACHINIST): Not visually significant. Do not recommend surgery at this time. Continue to monitor. Patient to call if problems with activities of daily living. Brochure offered/given. Dry eye syndrome of both eyes 02/25/2020 Assessment & Plan (09/28/2020 3:09 PM PRINTING MACHINIST): Recommend increase lubricant eye drops to 4 [...] Encounters Date Type Department Care Team Description 06/15/2025 Telephone [facility] Medicine Ophthalmology [address] [place] [address] Opal Winters, OD Medical Records Request from Last 3 Months Immunizations Immunization Administration [...] on file Legal Sex Female 2:31 AM PRINTING MACHINIST Gender Identity Not on file Sexual Orientation [...] 65+ 2018 Influenza Vaccine (#1) 2025 07/16/2020 Insurance MEDICARE AETNA SENIOR SUPPLEMENT AET[employer] SENIOR SUPPLEMENT MEDICARE MEDICARE AETNA SENIOR SUPPLEMENT Care Teams Safety Clothing And Equipment Developer Relationship Specialty Start Date End Date Nelida Gallego DO PCP - General Family Medicine 11/30/23
--- OUTSIDE RECORDS SUMMARY | 2025-08-03 08:07 | XMS_ITS | Encounter Summary ---
Author Organization [facility] Address [address] [place] [address] Care Team Providers Care Water Safety Instructor Name Role Phone Irving Adams MD Primary Care Provider [phone] Encounter Details Date Type Department Care Team (Latest Contact Info) Description 07/21/2005 Outpatient Historical HIS [facility] Mar, Joe Kerr MD [address] [facility] [address] [place] [address] SCREENING MAMM-MAILG NEOPL NEC (Primary Dx) Social History Tobacco Use Types Packs/Day Years Used Date Smoking Tobacco: Never Assessed Comments Unknown Sex and Gender Information Value Date Recorded Sex Assigned at Not on file Legal Sex Female 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
--- OUTSIDE RECORDS SUMMARY | 2025-08-03 08:07 | XMS_ITS | Encounter Summary ---
Author Organization [facility] Address 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
--- OUTSIDE RECORDS SUMMARY | 2025-08-03 08:07 | XMS_ITS | Clinical Summary ---
Author Organization 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
== END 2025-08-03 07:58 | disposition home or self-care (01) ==
LOC: ANHAUDASC 07:58
PROVIDERS: PCP Family Medicine; Visit Provider Otolaryngology
DX: H90.3 Sensorineural hearing loss, bilateral (principal); H93.8X1 Other specified disorders of right ear; H92.01 Otalgia, right ear; R68.84 Jaw pain
CPT/HCPCS: 92557; 92567

== ENCOUNTER 2025-09-09 08:04 | Outpatient (CLI) | payer MEDICARE, SELFPAY ==
--- OUTSIDE RECORDS SUMMARY | 2025-09-09 08:19 | XMS_ITS | Clinical Summary ---
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
--- OUTSIDE RECORDS SUMMARY | 2025-09-09 08:19 | XMS_ITS | Clinical Summary ---
Author Organization [facility] Address [address] [place] [address] Care Team Providers Care Power Plant Assistant Name Role Phone Nelida Gallego DO Primary Care Provider [phone] Allergies Active Allergy Reactions Criticality Noted Date [...] measurements Assessment & Plan (09/28/2020 3:09 PM MEDICAL RESIDENT): Prism reading glasses 2019- SGore Uses PRN. Helps. Rarely has diplopia. Can try convergence exercise. Age-related nuclear cataract of both eyes 2019 Assessment & Plan (02/25/2025 9:41 AM CDT): -mild; not yet visually significant -ok to continue with habitual specs -follow Assessment & Plan (09/28/2020 3:09 PM MEDICAL RESIDENT): Not visually significant. Do not recommend surgery at this time. Continue to monitor. Patient to call if problems with activities of daily living. Brochure offered/given. Dry eye syndrome of both eyes 02/25/2020 Assessment & Plan (09/28/2020 3:09 PM MEDICAL RESIDENT): Recommend increase lubricant eye drops to 4 [...] Type Department Care Team Description 06/15/2025 Telephone [facility] Medicine Ophthalmology [address] [place] [address] Opal Winters, OD Medical Records [...] on file Legal Sex Female 2:31 AM MEDICAL RESIDENT Gender Identity Not on file Sexual Orientation [...] MEDICARE MEDICARE AETNA SENIOR SUPPLEMENT Care Teams Power Plant Assistant Relationship Specialty Start Date End Date Nelida Gallego DO PCP - General Family Medicine 11/30/23
--- OUTSIDE RECORDS SUMMARY | 2025-09-09 08:19 | XMS_ITS | Encounter Summary ---
Author Organization [facility] Address [address] [place] [address] Care Team Providers Care Beverage Steward Name Role Phone Irving Adams MD Primary Care Provider Encounter Details Date Type Department Care Team (Latest Contact Info) Description 07/21/2005 Outpatient Historical HIS [facility] Mar, Joe Kerr MD [address] [facility] [address] [place] [address] SCREENING MAMM-MAILG NEOPL NEC (Primary Dx) Social History Tobacco Use Types Packs/Day Years Used Date Smoking Tobacco: Never Assessed Comments Unknown Sex and Gender Information Value Date Recorded Sex Assigned at Not on file 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
--- OUTSIDE RECORDS SUMMARY | 2025-09-09 08:19 | XMS_ITS | Encounter Summary ---
Author Organization [facility] Address [address] [place] [address] Care Team Providers Care Cell Technician Name Role Phone Irving Adams MD Primary Care Provider Encounter Details Date Type Department Care Team (Latest Contact Info) Description 07/18/2004 Outpatient Historical HIS [facility] Mar, Jeo Kerr MD [address] [facility] [address] [place] [address] UNSP ABNORMAL MAMMOGRAM (Primary Dx) Social History Tobacco Use Types Packs/Day Years Used Date Smoking Tobacco: Never Assessed Comments Unknown Sex and Gender Information Value Date Recorded Sex Assigned at Not on file Legal Sex Female 5:16 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
--- NOTE | 2025-10-06 17:34 | P.SLEEP_ITS ---
Sleep Study - Home Unattended Date of Study: 09/09/25 Ordering Provider: Perla Sesay DO Interpreting Provider: Perla Sesay DO Home Sleep Study Type: Watch PAT Height: 1.63 m Weight: 100.698 kg Body Mass Index: 38.0 Neck Circumference (inches): 15.5 [place]: 4 Reason for Sleep Study Previously diagnosed sleep apnea and is currently using a mandibular advancement device. Sleep History The patient is a 70-year-old female that had a sleep study ordered by her sleep physician for re-evaluation of sleep apnea. The patient denies awakening from sleep short of breath. She rarely awakens at night with heartburn, belching or cough. She frequently has trouble sleeping when she has a cold. She denies waking up gasping for air throughout the night. She rarely has breathing problems at night observed by herself or others. She rarely sweats excessively at night. She denies having heart palpitations or irregular heartbeats during the night. She denies falling asleep during the day and while driving. She denies sleep paralysis and cataplexy. She denies having trouble at school or work due to sleepiness. She rarely experiences vivid dreamlike scenes upon awakening or falling asleep. She denies feeling afraid of going to sleep. She occasionally has nightmares. She frequently remembers her dreams. She occasionally has thoughts racing through her mind. She denies feeling sad, depressed and anxious. She denies having muscular tension. She denies noticing parts of her body jerk. She denies having crawling and aching feelings in her legs and denies having leg pain during the night. She occasionally grinds her teeth during sleep but rarely awakens with morning jaw pain. She is frequently bothered by pain during the day and frequently awakened by pain during the night. She frequently wakes up feeling stiff in the morning. She frequently wakes up with sore or achy muscles. She rarely wakes up with pain in the neck, spine and other joints. She goes to bed at 10:00 p.m. every night. She is able to fall asleep within a few minutes. She wakes up 2-3 times throughout the night for unknown reasons and is able to fall back asleep within a few minutes. She wakes up at 6:00 a.m. every morning. She typically gets 8 hours of sleep per night. She does not stay in bed after waking up in the morning. She currently lives with her . She denies consuming any caffeinated beverages within 2 hours of bedtime. She denies engaging in physical exercise before bedtime. She will watch television before falling asleep. She denies taking naps in afternoon or the evening. She consumes 2 caffeinated beverages per day. She denies tobacco, alcohol and recreational drug use. [facility] Past Medical History Medical History (Updated 10/06/25 @ 17:42 by Perla Sesay DO) Impacted cerumen, right ear Otalgia, right ear External hemorrhoid Diverticulum of large intestine Insect bite Obstructive sleep apnea Allergic reaction due to prevnar 13 Abnormal EKG Acute sinusitis Upper respiratory infection Essential (primary) hypertension Mixed hyperlipidemia Surgical History Surgical History History of vocal cord polypectomy History of tubal ligation History of section History of cholecystectomy History of carpal tunnel release Family History Family History Father Family history of congenital heart disease Family history of cardiovascular disease, Onset Age: 89 Family history of congestive heart failure, Onset Age: 89 Mother Family history of cardiovascular disease Family history of malignant neoplasm of breast Family history of malignant neoplasm of breast in first degree relative Social History Social History Social History: Surrogate decision-maker: Guzman López, . CODE STATUS: Full code. 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 Smoking status: Never smoker Second hand tobacco smoke exposure: Yes Alcohol intake: never Substance use: never Substance use type: does not use Lack of Transportation: No Lack of Food: Never True Current Housing: I Have Housing Concerned About Future Housing: No Difficulty Paying Gas/Electric Bills: No Difficulty Paying for Meds: No Currently Unemployed: No Education: Master's Degree or Higher Difficulty w/ Childcare or Family Care: No Living arrangements: with family Additional living arrangements comments: Lives in [place] with her . They have 3 adult sons. Patient enjoys gardening. 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 Spiritual care concerns: No Medications Home Medications ?Medication ?Instructions ?Recorded ?Confirmed ?Type aspirin 81 mg tablet,delayed 81 mg PO DAILY 02/23/25 1 11/29/24 History release cholecalciferol (vitamin D3) 25 25 mcg PO DAILY 09/28/25 History mcg (1,000 unit) capsule irbesartan 150 mg tablet 150 mg PO DAILY #90 tabs 10/2209/28/25 Rx meloxicam 7.5 mg tablet 7.5 mg PO DAILY #30 tabs 09/28/25 Rx rosuvastatin 5 mg tablet 5 mg PO DAILY #90 tabs 09/2809/28/25 Rx Sleep Procedure The sleep study was completed using [employer] a technically adequate device with seven channels: peripheral arterial tone, actigraphy, body position, snore, respiratory movement, pulse oximetry, sleep staging, and heart rate. Prior to using the device, the patient received verbal and written instructions for its application and was provided with the help desk phone number for additional t elephonic instruction with 24-hour availability of qualified personnel to answer questions. The study was scored using CMS guidelines. Sleep Architecture The total recording time is 8 hrs, 8 min. The total sleep time is 7 hrs, 4 min. Sleep latency is 19 minutes. REM latency is 35 minutes. The patient had 10 episodes of waking. Sleep architecture shows 21.2% deep sleep, 47.6% light sleep, and (as % Total Sleep Time) showed NREM (Light 47.6%; Deep 21.2%), and a 31.1% stage REM. The patient spent 47.3% of total sleep time in the supine position. Sleep efficiency was 86.89. Respiratory Analysis The overall AHI (pAHI 4%:) is 6.7. The overall AHI (pAHI 3%:) is 7.6. The central AHI is 2.8. The AHI was 1.2 in NREM and 22.1 in REM sleep. The AHI was 12.7 in Supine and 5.5 in Non-supine sleep. Percent of Sandeep Ang respirations is 0.0. Oximetry Data The oxygen desaturation index (GIGI 4%:) is 6.0. The mean saturation is 94%, and the lowest saturation is 82%. Time spent with saturation < 88% is 2.6 minutes. Snoring Profile Snoring average intensity is 45 dB. The patient snored above 45 decibels for 155.0 minutes, 36.6% of sleep time. Cardiac Profile The average pulse rate is 63 beats per minutes. The lowest pulse rate is 47 bpm. The highest pulse rate reported is 90 bpm. Atrial fibrillation was not detected. Premature beats occur <0.1 per minute. Assessment and Plan Assessment and Plan (1) Obstructive sleep apnea: Code(s): G47.33 - Obstructive sleep apnea (adult) (pediatric) Status: Acute Assessment and Plan: The patient had an overall AHI of 6.7 with desaturation down to 82%. This is consistent with mild sleep apnea. Due to the patient's carotid artery disease, she qualifies for treatment. I recommend that the patient be prescribed AutoPAP 5-15 cm H2O, CPAP mask/filters/tubing and heated humidity. A mandibular advancement device is an acceptable treatment option. This should be used with all episodes of sleep.? Compliance should be reviewed within 31-90 days of starting therapy for usage greater than 4 hours per night greater than 70% of the nights. The patient should be asked about symptoms such as?excessive daytime sleepiness, quality of sleep, decreased nocturia, increased?mental functioning such as memory, mood, and concentration. Data The data obtained during this sleep study is adequate for interpretation. Certification This sleep study has been reviewed by a board certified sleep medicine physician.
[2025-10-07 18:26] VITALS: BMI 38.0
== END 2025-09-10 15:41 | disposition home or self-care (01) ==
PROVIDERS: PCP Family Medicine; Visit Provider Family Medicine
DX: G47.33 Obstructive sleep apnea (adult) (pediatric) (principal); I10 Essential (primary) hypertension
CPT/HCPCS: 95800

== ENCOUNTER 2025-09-22 08:08 | Outpatient (CLI) | payer MEDICARE, SELFPAY ==
--- OUTSIDE RECORDS SUMMARY | 2025-09-22 08:11 | XMS_ITS | Encounter Summary ---
Author Organization [facility] Address [address] [place] [address] Care Team Providers Care Program Services Planner Name Role Phone Irving Adams MD Primary Care Provider [phone] Encounter Details Date Type Department Care Team (Latest Contact Info) Description 07/18/2004 Outpatient Historical HIS [facility] Mar, Joe Kerr MD [address] [facility] [address] [place] [address] UNSP ABNORMAL MAMMOGRAM (Primary Dx) Social History Tobacco Use Types Packs/Day Years Used Date Smoking Tobacco: Never Assessed Comments Unknown Sex and Gender Information Value Date Recorded Sex Assigned at Not on file Legal Sex Female 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
--- OUTSIDE RECORDS SUMMARY | 2025-09-22 08:11 | XMS_ITS | Encounter Summary ---
Author Organization [facility] Address [address] [place] [address] Care Team Providers Care Weld Inspector Name Role Phone Irving Adams MD Primary Care Provider Encounter Details Date Type Department Care Team (Latest Contact Info) Description 07/21/2005 Outpatient Historical HIS [facility] Mar, Joe Kerr MD [address] [facility] [address] [place] [address] SCREENING MAMM-MAILG NEOPL NEC (Primary Dx) Social History Tobacco Use Types Packs/Day Years Used Date Smoking Tobacco: Never Assessed Comments Unknown Sex and Gender Information Value Date Recorded Sex Assigned at Not on file Legal Sex Female 5:16 AM 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
--- OUTSIDE RECORDS SUMMARY | 2025-09-22 08:11 | XMS_ITS | Clinical Summary ---
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
--- OUTSIDE RECORDS SUMMARY | 2025-09-22 08:11 | XMS_ITS | Clinical Summary ---
Author Organization [facility] Address [address] [place] [address] Care Team Providers Care Inspector Integrated Circuits Name Role Phone Nelida Gallego DO Primary Care Provider [phone] Allergies Active Allergy Reactions Criticality Noted Date [...] measurements Assessment & Plan (09/28/2020 3:09 PM CAD ENGINEER): Prism reading glasses 2019- SGore Uses PRN. Helps. Rarely has diplopia. Can try convergence exercise. Age-related nuclear cataract of both eyes 2019 Assessment & Plan (02/25/2025 9:41 AM CDT): -mild; not yet visually significant -ok to continue with habitual specs -follow Assessment & Plan (09/28/2020 3:09 PM CAD ENGINEER): Not visually significant. Do not recommend surgery at this time. Continue to monitor. Patient to call if problems with activities of daily living. Brochure offered/given. Dry eye syndrome of both eyes 02/25/2020 Assessment & Plan (09/28/2020 3:09 PM CAD ENGINEER): Recommend increase lubricant eye drops to 4 [...] on file Legal Sex Female 2:31 AM CAD ENGINEER Gender Identity Not on file Sexual Orientation [...] 2025 07/16/2020 Insurance MEDICARE AETNA SENIOR SUPPLEMENT T SENIOR SUPPLEMENT MEDICARE MEDICARE AETNA SENIOR SUPPLEMENT Care Teams Inspector Integrated Circuits Relationship Specialty Start Date End Date Nelida Gallego DO PCP - General Family Medicine 11/30/23
[2025-09-22 19:58] LABS: Alanine Aminotransferase 17 U/L (6-35); Albumin Level 3.8 g/dL (3.5-5.1); Alkaline Phosphatase 94 U/L (38-126); Anion Gap 6 mmol/L (4-12); Aspartate Amino Transferase 42 U/L (14-36); Bilirubin,Total 0.5 mg/dL (0.2-1.3); Blood Urea Nitrogen 21 mg/dL (7-17); Calcium 9.4 mg/dL (8.4-10.2); Carbon Dioxide 27 mmol/L (22-30); Chloride 105 mmol/L (98-107); Cholesterol 192 mg/dL (0-200); Estimated Glomerular Filt Rate > 60; Glucose 73 mg/dL (65-110); HDL Direct 57 mg/dL; Potassium 4.5 mmol/L (3.4-5.0); Sodium 138 mmol/L (137-145); Total Protein 6.9 g/dL (6.3-8.2); Triglycerides 96 mg/dL (<150)
[2025-09-22 20:34] LABS: Thyroid Stimulating Hormone 2.110 uIU/mL (0.465-4.680)
[2025-09-22 20:52] LABS: Hematocrit 42.9 % (37.0-47.0); Hemoglobin 13.6 g/dL (12.0-15.0); Mean Corpuscular HGB Conc 31.7 g/dl (32-36); Mean Corpuscular Hemoglobin 29.2 pg (26-34); Mean Corpuscular Volume 92.1 fl (80-100); Platelet Count Result 288 k/mm3 (150-375); Red Blood Count 4.66 M/mm3 (4.2-5.4); White Blood Count 4.6 K/mm3 (4.5-10.0)
[2025-09-22 20:57] LABS: Hemoglobin A1C 5.9 % (<5.7)
[2025-09-29 18:08] LABS: 1,25-Dihydroxy, Vitamin D-2 <10 pg/mL (.); 1,25-Dihydroxy, Vitamin D-3 68 pg/mL (.); Total 1,25-Dihydroxy,Vitamin D 69 pg/mL (.)
== END 2025-09-22 08:09 | disposition home or self-care (01) ==
PROVIDERS: PCP Family Medicine; Visit Provider Family Medicine
DX: I10 Essential (primary) hypertension (principal); E78.2 Mixed hyperlipidemia; R73.03 Prediabetes; E55.9 Vitamin D deficiency, unspecified; E66.812 Obesity, class 2; E66.01 Morbid (severe) obesity due to excess calories; Z68.39 Body mass index [BMI] 39.0-39.9, adult; Z79.899 Other long term (current) drug therapy
CPT/HCPCS: 36415; 80053; 80061; 82652; 83036; 84443; 85027